=== PATIENT | male | born 1940 | race Caucasian/White ===

== ENCOUNTER → 2016-11-01 | Outpatient (CLI) | payer MEDICARE, OTHER ==
[2016-11-01 13:43] LABS: HEMATOCRIT 43.4 % (37.9-51.0); HEMOGLOBIN 14.6 g/dL (13.5-17.0); HGB HCT DIFFERENCE 0.4; MEAN CORPUSCULAR HEMOGLOBIN 30.5 pg (27.0-33.4); MEAN CORPUSCULAR HGB CONC 33.7 g/dL (32.0-36.0); MEAN CORPUSCULAR VOLUME 91 fl (80-97); RED BLOOD COUNT 4.78 10^6/uL (4.35-5.55); RED CELL DISTRIBUTION WIDTH 13.6 % (11.5-14.0); WHITE BLOOD COUNT 7.1 10^3/uL (4.0-10.5)
[2016-11-01 13:46] LABS: APPEARANCE,URINE CLEAR; BILIRUBIN,URINE NEGATIVE (NEGATIVE); GLUCOSE, URINE NEGATIVE (NEGATIVE); KETONES,URINE NEGATIVE (NEGATIVE); LEUKOCYTE ESTERASE,URINE NEGATIVE (NEGATIVE); NITRITE,URINE NEGATIVE (NEGATIVE); PROTEIN,URINE NEGATIVE (NEGATIVE); UROBILINOGEN,URINE NEGATIVE mg/dL (<2.0)
[2016-11-01 14:02] LABS: ANION GAP 12 (5-19); BLOOD UREA NITROGEN 13 mg/dL (7-20); CALCIUM 9.6 mg/dL (8.4-10.2); CARBON DIOXIDE 26 mmol/L (22-30); CHLORIDE 95 mmol/L (98-107); CREATININE RESULT 0.65 mg/dL (0.52-1.25); GLUCOSE 86 mg/dL (75-110); POTASSIUM 4.7 mmol/L (3.6-5.0); SODIUM 132.6 mmol/L (137-145)
== END ==
LOC: OD 10:21 → EDSTATUS 11-12 14:00
PROVIDERS: ATTEND Orthopaedic Surgery
DX: Z53.9 Procedure and treatment not carried out, unspecified reason (principal)
CPT/HCPCS: 36415; 80048; 81001; 85027

== ENCOUNTER → 2016-11-06 | Outpatient (CLI) | payer MEDICARE, OTHER ==
[2016-11-06 12:21] LABS: ALANINE AMINOTRANSFERASE 30 U/L (21-72); ALBUMIN 3.9 g/dL (3.5-5.0); ALKALINE PHOSPHATASE 127 U/L (38-126); ASPARTATE AMINO TRANSFERASE 45 U/L (17-59); BILIRUBIN,DIRECT 0.3 mg/dL (0.0-0.4); BILIRUBIN,TOTAL 1.1 mg/dL (0.2-1.3); CHOLESTEROL 173.24 mg/dL (0-200); Direct HDL 64 mg/dL (>40); MAGNESIUM 1.9 mg/dL (1.6-2.3); TOTAL PROTEIN 6.8 g/dL (6.3-8.2); TRIGLYCERIDES 50 mg/dL (<150)
[2016-11-06 12:33] LABS: DIRECT LDL 81 mg/dL (<100)
[2016-11-08 16:15] LABS: ABSOLUTE BASOPHILS # (AUTO) 0.1 10^3/uL (0.0-0.2); ABSOLUTE EOSINOPHILS # (AUTO) 0.1 10^3/uL (0.0-0.6); ABSOLUTE LYMPHOCYTES (AUTO) 1.4 10^3/uL (0.5-4.7); ABSOLUTE MONOCYTES (AUTO) 0.5 10^3/uL (0.1-1.4); ABSOLUTE NEUT (AUTO) 4.6 10^3/uL (1.7-8.2); BASOPHILS % (AUTO) 0.8 % (0-2); EOSINOPHILS % (AUTO) 1.1 % (0-6); HEMATOCRIT 42.3 % (37.9-51.0); HEMOGLOBIN 14.5 g/dL (13.5-17.0); HGB HCT DIFFERENCE 1.2; LYMPHOCYTES % (AUTO) 21.7 % (13-45); MEAN CORPUSCULAR HEMOGLOBIN 30.5 pg (27.0-33.4); MEAN CORPUSCULAR HGB CONC 34.2 g/dL (32.0-36.0); MEAN CORPUSCULAR VOLUME 89 fl (80-97); MONOCYTES % (AUTO) 7.2 % (3-13); RED BLOOD COUNT 4.75 10^6/uL (4.35-5.55); RED CELL DISTRIBUTION WIDTH 13.6 % (11.5-14.0); SEGMENTED NEUTROPHILS % (AUTO) 69.2 % (42-78); WHITE BLOOD COUNT 6.7 10^3/uL (4.0-10.5)
[2016-11-08 16:21] LABS: PROTHROMBIN TIME 13.6 SEC (11.4-15.4)
[2016-11-08 16:22] LABS: PARTIAL THROMBOPLASTIN TIME 31.3 SEC (23.5-35.8)
== END ==
LOC: OD 10:50
PROVIDERS: ATTEND Internal Medicine Cardiovascular Disease
DX: Z01.810 Encounter for preprocedural cardiovascular examination (principal); I49.3 Ventricular premature depolarization; R07.89 Other chest pain; E78.00 Pure hypercholesterolemia, unspecified; R73.09 Other abnormal glucose; Z79.01 Long term (current) use of anticoagulants
CPT/HCPCS: 36415; 80061; 80076; 82977; 83036; 83735; 84443; 85025; 85610; 85730

== ENCOUNTER → 2017-01-08 | Outpatient (CLI) | payer MEDICARE, OTHER ==
[2017-01-08 16:08] LABS: ABSOLUTE BASOPHILS # (AUTO) 0.1 10^3/uL (0.0-0.2); ABSOLUTE EOSINOPHILS # (AUTO) 0.1 10^3/uL (0.0-0.6); ABSOLUTE LYMPHOCYTES (AUTO) 1.6 10^3/uL (0.5-4.7); ABSOLUTE MONOCYTES (AUTO) 0.5 10^3/uL (0.1-1.4); ABSOLUTE NEUT (AUTO) 4.5 10^3/uL (1.7-8.2); BASOPHILS % (AUTO) 0.8 % (0-2); EOSINOPHILS % (AUTO) 1.1 % (0-6); HEMATOCRIT 39.9 % (37.9-51.0); HEMOGLOBIN 13.5 g/dL (13.5-17.0); HGB HCT DIFFERENCE 0.6; LYMPHOCYTES % (AUTO) 24.5 % (13-45); MEAN CORPUSCULAR HEMOGLOBIN 30.3 pg (27.0-33.4); MEAN CORPUSCULAR HGB CONC 33.9 g/dL (32.0-36.0); MEAN CORPUSCULAR VOLUME 89 fl (80-97); MONOCYTES % (AUTO) 6.9 % (3-13); RED BLOOD COUNT 4.46 10^6/uL (4.35-5.55); RED CELL DISTRIBUTION WIDTH 13.7 % (11.5-14.0); SEGMENTED NEUTROPHILS % (AUTO) 66.7 % (42-78); WHITE BLOOD COUNT 6.7 10^3/uL (4.0-10.5)
--- NOTE | 2017-01-08 16:11 | RADIOLOGY REPORT (SQ) ---
EXAM DESCRIPTION: CHEST PA/LATERAL COMPLETED DATE/TIME: 01/08/2017 3:46 pm REASON FOR STUDY: PRE OP COMPARISON: 03/19/2016 EXAM PARAMETERS: NUMBER OF VIEWS: two views TECHNIQUE: Digital Frontal and Lateral radiographic views of the chest acquired. RADIATION DOSE: NA LIMITATIONS: none FINDINGS: LUNGS AND PLEURA: No opacities, masses or pneumothorax. No pleural effusion. MEDIASTINUM AND HILAR STRUCTURES: No masses or contour abnormalities. HEART AND VASCULAR STRUCTURES: Heart normal size. No evidence for failure. BONES: No acute findings. HARDWARE: None in the chest. OTHER: No other significant finding. IMPRESSION: NO SIGNIFICANT RADIOGRAPHIC FINDING IN THE CHEST. TECHNICAL DOCUMENTATION: JOB ID: [id number] [employer] [place]- All Rights Reserved
[2017-01-08 16:13] LABS: APPEARANCE,URINE CLEAR; BILIRUBIN,URINE NEGATIVE (NEGATIVE); GLUCOSE, URINE NEGATIVE (NEGATIVE); KETONES,URINE NEGATIVE (NEGATIVE); LEUKOCYTE ESTERASE,URINE NEGATIVE (NEGATIVE); NITRITE,URINE NEGATIVE (NEGATIVE); PROTEIN,URINE NEGATIVE (NEGATIVE); UROBILINOGEN,URINE NEGATIVE mg/dL (<2.0)
[2017-01-08 16:29] LABS: ANION GAP 10 (5-19); BLOOD UREA NITROGEN 14 mg/dL (7-20); CALCIUM 9.2 mg/dL (8.4-10.2); CARBON DIOXIDE 25 mmol/L (22-30); CHLORIDE 97 mmol/L (98-107); GLUCOSE 116 mg/dL (75-110); POTASSIUM 4.6 mmol/L (3.6-5.0); SODIUM 131.9 mmol/L (137-145)
--- NOTE | 2017-01-08 19:55 | EKG REPORT ---
SEVERITY:- ABNORMAL ECG - SINUS RHYTHM MULTIPLE VENTRICULAR PREMATURE COMPLEXES BORDERLINE LEFT AXIS DEVIATION BORDERLINE T ABNORMALITIES, DIFFUSE LEADS : Confirmed by: Ericka Yanez 08-Jan-2017 19:53:31
== END ==
LOC: OD 14:45
PROVIDERS: ATTEND Orthopaedic Surgery
DX: Z01.810 Encounter for preprocedural cardiovascular examination (principal); Z01.812 Encounter for preprocedural laboratory examination; Z01.818 Encounter for other preprocedural examination
CPT/HCPCS: 36415; 71020; 80048; 81001; 85025; 93005; 93010

== ENCOUNTER 2017-01-21 06:27 | Inpatient (IN) | payer MEDICARE, OTHER ==
[~2017-01-21 06:27] MED LIST: BUPIVACAINE INJ/PF LIPOSOME/PF 266 MG/20 ML SDV IJ PRN; CEFAZOLIN INJ 1 GM VIAL IV PRN; IBUPROFEN 800 MG/NS 250 ML IV PRN; LACTATED RINGERS 1000 ML IV PRN; LANSOPRAZOLE 15 MG TAB.RAP.DR PO PRN; LIDOCAINE 0.5% INJ-PF (5 MG/ML) 50 ML SDV SUBCUT PRN; OXYCODONE HCL SR 10 MG TABLET PO PRN; SCOPOLAMINE HYDROBROMIDE 1.5 MG PATCH.TD72 TOP PRN; VANCOMYCIN HCL 1,000 MG in DEXTROSE 5%-WATER 250 ML IV PRN
[2017-01-21] MEDS ORDERED: THROMBIN (BOVINE) 5000 UNIT EPITAXIS KIT ONE (08:23)
[2017-01-21] MEDS ORDERED: THROMBIN (BOVINE) TOPICAL 20000 UNIT VIAL ONE (08:23)
[2017-01-21] MEDS ORDERED: BUPIVACAINE INJ/PF LIPOSOME/PF 266 MG/20 ML SDV ONE (08:24)
[2017-01-21] MEDS ORDERED: MIDAZOLAM 2 MG/2 ML INJ ONE (10:41)
[2017-01-21] MEDS ORDERED: PROPOFOL INJ 200 MG/20 ML VIAL IV ONE (10:41)
[2017-01-21] MEDS ORDERED: FENTANYL CITRATE INJ/PF 100 MCG/2 ML AMPUL ONE (10:41)
[2017-01-21] MEDS ORDERED: EPHEDRINE SULFATE INJ 50 MG/1 ML AMPULE ONE (10:42)
[2017-01-21] MEDS ORDERED: TRANEXAMIC ACID INJ/PF 1,000 MG/10 ML SDV IV ONE ×3 (10:42→15:55)
[2017-01-21] MEDS ORDERED: DIPHENHYDRAMINE HCL 50 MG/ML VIAL IV PRN ×2 (12:04→12:49)
[2017-01-21] MEDS ORDERED: FENTANYL CITRATE INJ/PF 100 MCG/2 ML AMPUL IV PRN ×3 (12:04)
[2017-01-21] MEDS ORDERED: MEPERIDINE HCL/PF INJ 25 MG/1 ML DISP.SYRIN IV PRN (12:04)
[2017-01-21] MEDS ORDERED: OXYCODONE-ACETAMINOPHEN 5-325 MG TABLET PO PRN ×2 (12:04)
[2017-01-21] MEDS ORDERED: MORPHINE SULFATE 10 MG/ML INJ IV PRN ×4 (12:04→12:49)
[2017-01-21] MEDS ORDERED: PROMETHAZINE HCL INJ 25 MG/1 ML VIAL IV PRN ×2 (12:04)
--- NOTE | 2017-01-21 12:48 | Operative Report ---
Operative Report DATE OF SURGERY: 01/21/17 PREOPERATIVE DIAGNOSIS: l hip oa OPERATION: L hip arthroplasty SURGEON: EHSAN GARRETT ANESTHESIA: Spinal TISSUE REMOVED OR ALTERED: bone to path ESTIMATED BLOOD LOSS: 100 PROCEDURE: Implants used: Femur: Jane Accolade 2 size 5 stem Acetabular shell: 64 mm acetabular shell Liner: A 36 mm flat cross-linked polyethylene liner Head: 36 Millimeter chrome cobalt head -5 neck The patient is placed in a left lateral decubitus position on the operating table. The right lower extremity and hindquarter is prepped and draped in a sterile fashion. A curvilinear incision was made over the greater trochanter a posterior approach the hip was taken. The femoral head is dislocated and the femoral neck transected using an oscillating saw. Attention was next turned to the acetabulum. Soft tissues cleared off the acetabulum using electrocautery. The acetabulum was then prepared using a series of hemispherical reamers until a 63 millimeters reamer is seated. Subsequently a 64 millimeters Jane titanium hemispherical shell is impacted into position and secured with one screw. A standard flat 36 millimeters cross- link liner is impacted into the shell. Attention was next turned to the femur. Access is gained to the femoral canal using a box osteotome to the piriformis fossa. The femur is then prepared using a series of broaches until a number 5 broach is seated. A trial reduction was now performed using a 36 millimeters head with -5 neck. Preoperative leg length was recreated and is excellent anterior posterior stability. A decision was made to proceed with the above construct. All trial implants were removed. The wound is irrigated with pulsed lavage. A number 5 stem is impacted into the femoral canal. A trial reduction was again performed with a 36 mm head and a -5 neck. Findings as previously. The hip was dislocated one last time and the final chrome-cobalt head is impacted onto the trunnion. The hip was reduced. Wound is copiously irrigated with pulsed lavage. Sent closed in layers using interrupted Vicryl followed by sebastian. A sterile dressing is applied and the patient's returned to recovery room in satisfactory patient.
[2017-01-21] MEDS ORDERED: ZOLPIDEM TARTRATE 5 MG TABLET PO PRN (12:49)
[2017-01-21] MEDS ORDERED: ONDANSETRON 4 MG TAB.RAPDIS PO PRN (12:49)
[2017-01-21] MEDS ORDERED: MAG HYDROX/AL HYDROX/SIMETH SUSP 30 ML UDCUP PO PRN (12:49)
[2017-01-21] MEDS ORDERED: MORPHINE SULFATE 10 MG/ML INJ IM PRN (12:49)
[2017-01-21] MEDS ORDERED: OXYCODONE HCL IR 5 MG TABLET PO PRN (12:49)
[2017-01-21] MEDS ORDERED: ONDANSETRON HCL INJ/PF 4 MG/2 ML SDV IV PRN (12:49)
[2017-01-21] MEDS ORDERED: RINGERS SOLUTION,LACTATED 1,000 ML IV PRN (12:49)
--- NOTE | 2017-01-21 14:08 | RADIOLOGY REPORT (SQ) ---
EXAM DESCRIPTION: PELVIS AP COMPLETED DATE/TIME: 01/21/2017 1:16 pm REASON FOR STUDY: Post Op Long Cassette in PACU M16.12 UNILATERAL PRIMARY OSTEOARTHRITIS, LEFT HIP COMPARISON: 09/06/2016. NUMBER OF VIEWS: One view TECHNIQUE: Digital radiographic images of the pelvis post-procedure LIMITATIONS: None. FINDINGS: BONES: No worrisome or unexpected findings post-procedure. DEVICE: Total hip replacement. Components of the device in appropriate location. SOFT TISSUES: No worrisome findings. Expected postoperative soft tissue changes. IMPRESSION: SATISFACTORY POSTOPERATIVE PELVIS. TECHNICAL DOCUMENTATION: JOB ID: [id number] 1930 [employer]- All Rights Reserved
[2017-01-21] MEDS ORDERED: GLYCOPYRROLATE INJ 0.4 MG/2 ML VIAL ONE (14:27)
[2017-01-21] MEDS ORDERED: (PENDING PHARMACY ID) (Carvedilol [Carvedilol] 25 MG) PO SCH (18:00)
[2017-01-21] MEDS: IBUPROFEN 800 MG in NORMAL SALINE 250 ML IV SCH (18:04)
[2017-01-21] MEDS: SENNOSIDES/DOCUSATE 8.6-50 MG 1 EACH TABLET PO SCH (18:05)
[2017-01-21] MEDS: RIVAROXABAN 10 MG TABLET PO SCH (21:58)
[2017-01-21] MEDS: CARVEDILOL 12.5 MG TABLET PO SCH (21:59)
[2017-01-21] MEDS: OXYCODONE HCL SR 10 MG TABLET PO SCH (21:59)
[2017-01-22] MEDS ORDERED: VANCOMYCIN HCL 1,000 MG in DEXTROSE 5%-WATER 250 ML IV ONE (01:00)
[2017-01-22] MEDS: IBUPROFEN 800 MG in NORMAL SALINE 250 ML IV SCH ×3 (01:31→17:14)
[2017-01-22 05:35] LABS: HEMATOCRIT 32.5 % (37.9-51.0); HEMOGLOBIN 11.5 g/dL (13.5-17.0); MEAN CORPUSCULAR HEMOGLOBIN 31.6 pg (27.0-33.4); MEAN CORPUSCULAR HGB CONC 35.3 g/dL (32.0-36.0); MEAN CORPUSCULAR VOLUME 90 fl (80-97); RED BLOOD COUNT 3.63 10^6/uL (4.35-5.55); RED CELL DISTRIBUTION WIDTH 14.2 % (11.5-14.0); WHITE BLOOD COUNT 7.4 10^3/uL (4.0-10.5)
[2017-01-22] MEDS: LANSOPRAZOLE 30 MG TAB.RAP.DR PO SCH (05:42)
[2017-01-22 05:54] LABS: BLOOD UREA NITROGEN 17 mg/dL (7-20); CALCIUM 8.4 mg/dL (8.4-10.2); CREATININE RESULT 0.64 mg/dL (0.52-1.25); GLUCOSE 116 mg/dL (75-110); POTASSIUM 4.8 mmol/L (3.6-5.0); SODIUM 131.4 mmol/L (137-145)
[2017-01-22 06:05] LABS: CARBON DIOXIDE 27 mmol/L (22-30); CHLORIDE 100 mmol/L (98-107)
[2017-01-22 06:06] LABS: ANION GAP 4 (5-19)
--- NOTE | 2017-01-22 06:46 | PDOC PROGRESS REPORT ---
Subjective Progress Note for:: 01/22/17 Subjective:: Patient with only minor complaints of discomfort today Physical Exam Vital Signs: Temp Pulse Resp BP Pulse Ox 36.8 C 58 L 16 132/62 H 95 01/22/17 02:00 01/22/17 02:00 01/22/17 02:00 01/22/17 02:00 01/22/17 03:34 Pulse Oximeter Continuous Start: 01/21/17 18: 12 Freq: RTQ4 Status: Active Document 01/22/17 03:34 STI (Rec: 01/22/17 03:35 STI [id number]) Pulse Oximetry Assessment Oxygen Saturation (92-100) 95 Oxygen Delivery Method Room Air Fraction of Inspired Oxygen (FIO2) 21 Equipment Usage Equipment in Use Continuous SpO2 Machine # N-[id number] Intake & Output 01/20/17 01/21/17 01/22/17 06:59 06:59 06:59 Intake Total 4342 Output Total 1400 Balance 2942 General appearance: PRESENT: no acute distress Head exam: PRESENT: normocephalic Respiratory exam: PRESENT: unlabored Cardiovascular exam: PRESENT: RRR Pulses: PRESENT: +1 pedal pulses bilateral Vascular exam: PRESENT: normal capillary refill GI/Abdominal exam: PRESENT: soft Rectal exam: PRESENT: deferred Extremities exam: PRESENT: other - Hip dressing clean dry and intact. Leg lengths are equal. Distal neurovascular examination is intact. Neurological exam: PRESENT: alert, awake, oriented to person, oriented to place , oriented to time, oriented to situation. ABSENT: motor sensory deficit Psychiatric exam: PRESENT: appropriate affect, normal mood. ABSENT: homicidal ideation, suicidal ideation Skin exam: PRESENT: dry, intact, warm. ABSENT: cyanosis, rash Results Laboratory Results: 01/22/17 04:51 01/22/17 04:51 01/21/17 01/21/17 01/21/17 07:44 07:44 07:44 WBC RBC Hgb Hct MCV MCH MCHC RDW Plt Count Sodium Potassium 4.3 Chloride Carbon Dioxide Anion Gap BUN Creatinine Est GFR ( Amer) Est GFR (Non-Af Amer) Glucose Calcium Magnesium 1.9 Blood Type O POSITIVE Antibody Screen NEGATIVE 01/22/17 01/22/17 04:51 04:51 WBC 7.4 RBC 3.63 L Hgb 11.5 L Hct 32.5 L MCV 90 MCH 31.6 MCHC 35.3 RDW 14.2 H Plt Count 145 L Sodium 131.4 L Potassium 4.8 Chloride 100 Carbon Dioxide 27 Anion Gap 4 L BUN 17 Creatinine 0.64 Est GFR ( Amer) > 60 Est GFR (Non-Af Amer) > 60 Glucose 116 H Calcium 8.4 Magnesium Blood Type Antibody Screen Impressions: Pelvis X-Ray 01/21/17 12:50 IMPRESSION: SATISFACTORY POSTOPERATIVE PELVIS. Status: Imported from PACS Assessment & Plan - Diagnosis (1) Arthritis of left hip Is this a current diagnosis for this admission?: YesPlan: 76-year-old white male postop day 1 from left hip arthroplasty. No physical therapy yesterday. For discharge to a care home facility on . - Time Time Spent with patient: 15-24 minutes Anticipated discharge: SNF Within: within 48 hours
[2017-01-22] MEDS: SENNOSIDES/DOCUSATE 8.6-50 MG 1 EACH TABLET PO SCH ×2 (09:35→17:14)
[2017-01-22] MEDS: TAMSULOSIN HCL 0.4 MG CAP.SR.24H PO SCH (09:35)
[2017-01-22] MEDS: CARVEDILOL 12.5 MG TABLET PO SCH ×2 (09:35→21:47)
[2017-01-22] MEDS: VALSARTAN 160 MG TABLET PO SCH (09:35)
[2017-01-22] MEDS: CHOLECALCIFEROL (D3) 1,000 UNIT TABLET PO SCH (09:35)
[2017-01-22] MEDS ORDERED: (PENDING PHARMACY ID) (Multivitamin [Multivitamins] 1 TAB) PO SCH (10:00)
[2017-01-22] MEDS ORDERED: (PENDING PHARMACY ID) (Valsartan/Hydrochlorothiazide [Valsartan-Hctz 160-25 Mg Tab] 1 TAB) PO SCH (10:00)
[2017-01-22] MEDS ORDERED: (PENDING PHARMACY ID) (Cholecalciferol (Vitamin D3) [Vitamin D3 2000 Unit Tablet] 2,000 UN PO SCH (10:00)
[2017-01-22] MEDS ORDERED: LYSINE HCL PO SCH (10:00)
[2017-01-22] MEDS ORDERED: PRENATAL VITAMIN W-O CA NO5/FE FUMARATE/FA CAPSULE PO SCH (10:00)
[2017-01-22] MEDS ORDERED: MULTIVITAMIN TABLET PO SCH (10:00)
[2017-01-22] MEDS ORDERED: HYDROCHLOROTHIAZIDE 25 MG TABLET PO SCH (10:00)
[2017-01-22] MEDS: OXYCODONE HCL SR 10 MG TABLET PO SCH ×2 (12:12→21:45)
[2017-01-22] MEDS: RIVAROXABAN 10 MG TABLET PO SCH (21:45)
[2017-01-23] MEDS: IBUPROFEN 800 MG in NORMAL SALINE 250 ML IV SCH ×2 (01:53→10:41)
[2017-01-23] MEDS ORDERED: OXYCODONE HCL IR 5 MG TABLET PO PRN (03:39)
[2017-01-23] MEDS ORDERED: NALOXONE HCL INJ/PF 0.4 MG/1 ML SDV IV ONE (03:39)
[2017-01-23] MEDS ORDERED: NALOXONE HCL INJ/PF 0.4 MG/1 ML SDV ONE (03:44)
[2017-01-23 04:49] LABS: HEMATOCRIT 30.3 % (37.9-51.0); HEMOGLOBIN 10.6 g/dL (13.5-17.0); HGB HCT DIFFERENCE 1.5; MEAN CORPUSCULAR HEMOGLOBIN 31.8 pg (27.0-33.4); MEAN CORPUSCULAR HGB CONC 35.1 g/dL (32.0-36.0); MEAN CORPUSCULAR VOLUME 91 fl (80-97); RED BLOOD COUNT 3.35 10^6/uL (4.35-5.55); WHITE BLOOD COUNT 8.4 10^3/uL (4.0-10.5)
[2017-01-23 05:18] LABS: CREATINE KINASE MB 6.66 ng/mL (<4.55); TROPONIN I 0.012 ng/mL
[2017-01-23] MEDS: LANSOPRAZOLE 30 MG TAB.RAP.DR PO SCH (05:55)
--- NOTE | 2017-01-23 07:30 | PDOC TRANSFER SUMMARY ---
General - Admit/Disc Date/PCP Admission Date/Primary Care Provider: 01/21/17 06:27 GREGORIO FULLER PA-C Discharge Date: 01/24/17 - Discharge Diagnosis (1) Arthritis of left hip Is this a current diagnosis for this admission?: Yes - Additional Information Resuscitation Status: Full Code Home Medications: Aspirin [Aspirin 81 mg Chewable Tablet] 1 tab PO DAILY 07/18/15 Lysine HCl [l-Lysine] 1 tab PO DAILY 07/18/15 Multivitamin [Multivitamins] 1 tab PO DAILY 07/18/15 Valsartan/Hydrochlorothiazide [Valsartan-Hctz 160-25 mg Tab] 1 tab PO DAILY Cholecalciferol (Vitamin D3) [Vitamin D3 2000 unit Tablet] 2,000 unit PO DAILY 10/31/16 Tamsulosin HCl 0.8 mg PO ASDIR 10/31/16 Carvedilol 25 mg PO BID 01/21/17 Meloxicam 7.5 mg PO BID 01/21/17 History of Present Illness Admission Date/PCP: 01/21/17 06:27 GREGORIO FULLER PA-C History of Present Illness: DEBBIE ROJAS is a 76 year old male's of left hip pain and functional disability secondary osteoarthritis. Patient is admitted for elective left hip arthroplasty. Hospital Course Hospital Course: Admitted through the operating room where he undergoes uncomplicated left hip arthroplasty. Is returned to the floor in satisfactory condition. There is some issues with bradycardia but normal attention and normal urine output. This is attributed to medications which are adjusted. The patient seen by physical therapy for weightbearing as tolerated toward program. This is relatively slow and on the first postoperative day he walks only 4 steps. Hematocrit remains above 30%. Physical Exam Vital Signs: Temp Pulse Resp BP Pulse Ox 36.9 C 41 L 19 105/49 L 96 01/23/17 00:05 01/23/17 04:45 01/23/17 00:05 01/23/17 04:45 01/23/17 04:00 Pulse Oximeter Continuous Start: 01/21/17 18: 12 Freq: RTQ4 Status: Active Document 01/23/17 04:00 SFL (Rec: 01/23/17 06:07 SFL [email or web address]) Pulse Oximetry Assessment Oxygen Saturation (92-100) 96 Equipment Usage Equipment in Use Continuous SpO2 Machine # 6 Intake & Output 01/22/17 01/23/17 01/24/17 06:59 06:59 06:59 Intake Total 4582 810 Output Total 1600 375 Balance 2982 435 Weight 104.6 kg 108.5 kg Results Laboratory Results: 01/23/17 04:16 01/22/17 04:51 01/23/17 04:16 WBC 8.4 RBC 3.35 L Hgb 10.6 L Hct 30.3 L MCV 91 MCH 31.8 MCHC 35.1 RDW 14.0 Plt Count 122 L 01/23/17 01/23/17 04:16 04:16 Creatine Kinase 1291 H CK-MB (CK-2) 6.66 H Troponin I 0.012 Impressions: Pelvis X-Ray 01/21/17 12:50 IMPRESSION: SATISFACTORY POSTOPERATIVE PELVIS. Status: Imported from PACS Transfer Plan - Disposition Transfer Plan: Transferred to [facility] when bed available. He can receive both physical therapy for weightbearing as tolerated ambulation as well as retirement. Follow-up will be with Dr. Regan and [facility] for surgery in 2 weeks for staple removal. Left hip picot dressing will be changed on postop day 7 and replaced with an OpSite.
[2017-01-23] MEDS: ACETAMINOPHEN 325 MG TABLET PO PRN ×2 (08:07→17:54)
[2017-01-23] MEDS ORDERED: NORMAL SALINE 1000 ML 1,000 ML IV PRN (08:32)
[2017-01-23] MEDS ORDERED: BISACODYL 10 MG SUPP.RECT PR ONE (09:00)
[2017-01-23] MEDS ORDERED: ASPIRIN 81 MG TABLET, CHEWABLE PO SCH (10:00)
--- NOTE | 2017-01-23 10:12 | CONSULTATION REPORT E ---
Consultation Report NAME: DEBBIE ROJAS : 1940 AGE: 76Y DATE: 01/23/2017 427 A TO: PREET NICHOLSON NP FROM: Requesting Physician CODE STATUS: FULL CODE. PRIMARY CARE PROVIDER: Dr. Preet Deleon ATTENDING: Dr. Regan CONSULTING PROVIDER: Dr. Regan REASON FOR CONSULTATION: Bradycardia and altered mental status. HISTORY OF PRESENT ILLNESS: The patient is a 76-year-old male with a past medical history of osteoarthritis and hypertension. The patient presented for elective left hip arthroplasty. The patient had a functional disability secondary to the osteoarthritis. The patient was admitted through the operating room where he underwent an uncomplicated left hip arthroplasty and the patient was sent to the floor in satisfactory condition. Overnight the patient did develop some bradycardia but was normotensive and some confusion. The patient had normal urine output. The patient, who had been receiving opiates postop, was given Narcan with complete resolution of his symptoms. The patient was seen by physical therapy for weightbearing and tolerated it without issue. The patient is slated to go to [facility] for physical therapy. Upon evaluation of the patient, he was found to be awake, alert, and was completing a crossword puzzle; however, when asking the patient the specifics about his healthcare he is quite rambling. The patient is also preoccupied with why his sheets had to be changed during his stay as this is quite expensive. The patient stated that the sheets did not have to be replaced on his bed which they have been a couple of times. Also the patient stated that he had been rolled by the staff for positioning and stated that he should not be positioned by anyone. The patient was very difficult to focus and had no recollection of the events that occurred overnight. While visiting with the patient, he was normotensive and was oxygenating 98% on room air and had a heart rate of 72. PAST MEDICAL HISTORY: 1. Hypertension. 2. Osteoarthritis. PAST SURGICAL HISTORY: 1. Orthopedic knee surgery of the left knee including replacement. 2. Status post hip repair. ALLERGIES: No known drug allergies. CURRENT MEDICATIONS: 1. Flomax 0.8 mg p.o. daily. 2. Xarelto 10 mg p.o. at hour of sleep. 3. Coreg 25 mg p.o. q.12 hours. 4. Valsartan 160 mg p.o. daily. 5. Tylenol 650 mg p.o. q.4 hours p.r.n. 6. Aspirin 81 mg p.o. daily. 7. Ibuprofen 800 mg IV q.8 hours. 8. Prevacid 30 mg p.o. every a.m. 9. Zofran 4 mg IV q.6 hours p.r.n. 10. Vitamin D3 at 2000 international units p.o. daily. SOCIAL HISTORY: The patient currently resides with his daughter who is also his surrogate decision maker, Ramila Curiel, who may be reached at [phone]. The patient has no history of tobacco use. No use of alcohol or illicit drug use. The patient is retired. FAMILY MEDICAL HISTORY: Is not remarkable for heart disease but is positive for osteoarthritis. The patient has a daughter who is healthy. Both parents are . REVIEW OF SYSTEMS: The patient denies any specific concerns; however, full of review of systems is difficult to appreciate given the patient's mental status. PHYSICAL EXAMINATION: GENERAL: On examination, the patient is a well-developed, well-nourished, 76-year-old male who is awake and alert. He is oriented to person, place, time, not fully oriented to situation. He is a little delayed with unusual priorities. VITAL SIGNS: Temperature 98.5, pulse 75, respirations 19, blood pressure 131/68, oxygen saturation is 99% on room air. SKIN: Warm and dry. No rash. He is not diaphoretic. HEENT: Pupils equal, round, reactive to light and accommodation. Conjunctivae are pink. Sclerae are not icterus. No JVP. No palpable lymphadenopathy or thyromegaly. CARDIOVASCULAR: Heart is regular. There is no murmur or rub. CHEST: Clear, symmetrical, unlabored. ABDOMEN: Soft, nontender, nondistended. BACK: No CVA tenderness or sacral edema. EXTREMITIES: No clubbing, cyanosis, or edema. PSYCHIATRIC: Odd affect. Uncertain of his exact baseline and can be a little short. DIAGNOSTICS: Lab values are as values: Hematology obtained on 01/23/2017: WBCs are 8.4, hemoglobin is 10.6, hematocrit is 30.3, platelet count is 122,000. Chemistry obtained on 01/23/2017: Sodium is 131, potassium 4.8, chloride is 100, carbon dioxide 27, BUN 17, creatinine is 0.61, glucose 116, A1c is 5.4, calcium is 8.4, CK is 1291, CK-MB is 6.66, troponin is 0.012. IMPRESSION AND PLAN: 1. Bradycardia. This may be due to the patient's postoperative medications and this has improved with Narcan. The patient's heart rate is in an appropriate range, therefore, will continue his home beta edith for fear of rebounding and monitor. 2. Acute encephalopathy. As per #1 as well as combination of postop delirium. 3. Hyponatremia. This is relatively mild, however, will discontinue hydrochlorothiazide. 4. Mild rhabdo of 1291. Will gently hydrate the patient and follow CK accordingly. The patient's creatinine is at normal range. 5. Hyperglycemia. This must be a stress response as the patient's A1c is normal. 6. Postoperative anemia. The patient's hemoglobin went down from 13.5 to 10.6. This does need to be monitored. 7. Thrombocytopenia, relatively mild but again this needs to be monitored. 8. Suspected coronary artery disease. Unable to get any significant information out of the patient nor medical records available but given the patient's home medication list that contains an ARB as well as aspirin and carvedilol, feel this is most likely certain. The patient's troponin was unremarkable. The patient denied any symptoms of chest pain and his EKG was unimpressive. 9. DVT prophylaxis. The patient does take Xarelto as per Orthopedics. DISPOSITION: The patient is a FULL CODE. Pending patient's symptomatology and diagnostic findings, will reevaluate as needed. Do feel the patient would benefit from IV fluids to ensure that CK does not progress and will continue to monitor the patient's heart rate. Time spent on this consultation including assessment, plan, physical examination, patient education, and resource alignment is 30 minutes. DICTATING PHYSICIAN: PREET NICHOLSON NP [id number] PHY#: [id number] ID: [id number] JOB#: [id number] ACCT: [id number] cc:PREET NICHOLSON NP >
[2017-01-23] MEDS: CARVEDILOL 12.5 MG TABLET PO SCH ×2 (10:22→21:15)
[2017-01-23] MEDS: CHOLECALCIFEROL (D3) 1,000 UNIT TABLET PO SCH (10:23)
[2017-01-23] MEDS: TAMSULOSIN HCL 0.4 MG CAP.SR.24H PO SCH (10:23)
[2017-01-23] MEDS: VALSARTAN 160 MG TABLET PO SCH (10:24)
[2017-01-23] MEDS: SENNOSIDES/DOCUSATE 8.6-50 MG 1 EACH TABLET PO SCH ×2 (10:24→17:52)
[2017-01-23] MEDS: ASPIRIN 81 MG TABLET, CHEWABLE PO SCH (10:24)
[2017-01-23 11:40] LABS: CREATINE KINASE MB 5.92 ng/mL (<4.55)
[2017-01-23 11:42] LABS: TROPONIN I < 0.012 ng/mL
[2017-01-23] MEDS: RIVAROXABAN 10 MG TABLET PO SCH (21:29)
[2017-01-24] MEDS: LANSOPRAZOLE 30 MG TAB.RAP.DR PO SCH (05:05)
[2017-01-24 06:10] LABS: HEMOGLOBIN 9.8 g/dL (13.5-17.0); HGB HCT DIFFERENCE 1.4; MEAN CORPUSCULAR HEMOGLOBIN 31.5 pg (27.0-33.4); MEAN CORPUSCULAR HGB CONC 35.2 g/dL (32.0-36.0); MEAN CORPUSCULAR VOLUME 90 fl (80-97); RED BLOOD COUNT 3.12 10^6/uL (4.35-5.55); RED CELL DISTRIBUTION WIDTH 13.7 % (11.5-14.0)
[2017-01-24] MEDS ORDERED: CARVEDILOL 12.5 MG TABLET PO SCH (09:13)
[2017-01-24] MEDS: ACETAMINOPHEN 325 MG TABLET PO PRN (09:51)
[2017-01-24] MEDS: CHOLECALCIFEROL (D3) 1,000 UNIT TABLET PO SCH (09:52)
[2017-01-24] MEDS: TAMSULOSIN HCL 0.4 MG CAP.SR.24H PO SCH (09:52)
[2017-01-24] MEDS: ASPIRIN 81 MG TABLET, CHEWABLE PO SCH (09:52)
[2017-01-24] MEDS: SENNOSIDES/DOCUSATE 8.6-50 MG 1 EACH TABLET PO SCH (09:54)
[2017-01-24] MEDS: VALSARTAN 160 MG TABLET PO SCH (10:13)
[2017-01-24 15:50] VITALS: BP 132/58
--- NOTE | 2017-01-24 17:57 | PROGRESS NOTE E ---
Progress Note NAME: DEBBIE ROJAS : 1940 AGE: 76Y DATE: 01/24/2017 ROOM: 427 SUBJECTIVE: The patient is lying in bed. He states he feels okay today. The patient is very anxious to begin his rehab. He denies any nausea, vomiting, diarrhea. No shortness of breath, dizziness, chest pain. No fevers, chills. The patient has been afebrile. His blood pressure has been in a good range, and the patient does not voice any other concerns at this time. REVIEW OF SYSTEMS: The rest of the review of systems is negative. MEDICATIONS: Medications have been reviewed. OBJECTIVE: GENERAL: The patient is a well-developed, well-nourished, 76-year-old male who is awake, alert and oriented to person, place, time, and situation. He does not appear to be in any acute distress. VITAL SIGNS: Temperature is 98.4, pulse 69, respirations 15, blood pressure is 132/58, oxygen saturation is 100% on room air. SKIN: Warm and dry. No rash. He is not diaphoretic. HEENT: Pupils equal, round, reactive to light and accommodation. Conjunctiva is pink. NECK: No JVD. CARDIOVASCULAR SYSTEM: Heart is regular. There is no murmur or rub. CHEST: Clear, symmetrical, unlabored. ABDOMEN: Soft, nontender, nondistended. BACK: No CVA tenderness, sacral edema. EXTREMITIES: No clubbing, cyanosis, edema. PSYCHIATRIC: Appropriate affect. Pleasant mood. DIAGNOSTICS: Lab values are as follows: Hematology obtained on 01/24/2017; WBCs are 10.0, hemoglobin is 9.8, hematocrit is 28.0, platelet count is 114,000. Chemistry obtained on 01/23/2017: CK is 992, troponin is 0.012. IMPRESSION AND PLAN: 1. BRADYCARDIA. It was felt it was most likely related to postoperative medications. The patient overall has improved with Narcan. Have reduced the patient's dose of beta edith to 12.5 mg b.i.d., and the patient has tolerated this. 2. ACUTE ENCEPHALOPATHY. As per number 1 in combination of postop delirium. 3. HYPONATREMIA. It was relatively mild, but I went ahead and discontinued hydrochlorothiazide. 4. MILD RHABDOMYOLYSIS. This has trended down nicely. The patient's creatinine remained in a normal range. 5. HYPERGLYCEMIA. A stress response as the patient's A1c is normal. 6. POSTOPERATIVE ANEMIA. The patient has no evidence of overt bleed. 7. THROMBOCYTOPENIA. Relatively mild. 8. DVT PROPHYLAXIS. Will continue the patient on Xarelto as per Orthopedics. DISPOSITION: The patient is a FULL CODE. Pending patient's symptomatology and diagnostic findings, will re-evaluate as needed. Time spent on this followup on this assessment, plan, physical examination, and patient education is 15 minutes. DICTATING PHYSICIAN: SOO NICHOLSON NP [id number] PHY#: [id number] ID: [id number] JOB#: [id number] ACCT: [id number] cc:SOO NICHOLSON NP >
== END 2017-01-24 16:54 | DRG 469 ==
LOC: INOR 06:27 → 4S 17:50
PROVIDERS: ADMIT Orthopaedic Surgery; ATTEND Orthopaedic Surgery
PROC: 0SRB02Z Replacement of Left Hip Joint with Metal on Polyethylene Synthetic Substitute, Open Approach (ICD-10-PCS; principal; 2017-01-21 11:15)
DX: M16.12 Unilateral primary osteoarthritis, left hip (principal); G92 Toxic encephalopathy; E87.1 Hypo-osmolality and hyponatremia; T50.905A Adverse effect of unspecified drugs, medicaments and biological substances, initial encounter; R00.1 Bradycardia, unspecified; I10 Essential (primary) hypertension; D69.6 Thrombocytopenia, unspecified; D64.9 Anemia, unspecified; N40.0 Benign prostatic hyperplasia without lower urinary tract symptoms; I25.10 Atherosclerotic heart disease of native coronary artery without angina pectoris; Z86.010 Personal history of colon polyps; Z79.899 Other long term (current) drug therapy; Z79.82 Long term (current) use of aspirin; Z82.61 Family history of arthritis
CPT/HCPCS: 01214; 36415; 72170; 80048; 82550; 82553; 82962; 83036; 83735; 84132; 84484; 85027; 86850; 86900; 86901; 88304; 88311; 94762; 94799; C1713; C9290; G8978-GP; G8979-GP; G8987-GO; G8988-GO; J0690; J1741; J2250; J2310; J2704; J3010; J3370; J3490; J7030; J7050; J7060; J7120

== ENCOUNTER 2017-02-01 18:24 | Emergency (ER) | payer MEDICARE, OTHER ==
--- NOTE | 2017-02-01 18:59 | ER Document Report ---
ED Wound - General Mode of Arrival: Medic Information source: Patient TRAVEL OUTSIDE OF THE [place] IN LAST 30 DAYS: No - HPI Patient complains to provider of: Other - see narrative Occurred: Other - see above Capillary refill: < 3 seconds Sensations intact: Yes Distal pulses present: Yes <ERIC LAND - Last Filed: 02/01/17 19:24> <NISHA SHANKAR - Last Filed: 02/04/17 15:21> - General Chief Complaint: Drainage Stated Complaint: WEAKNESS Time Seen by Provider: 02/01/17 18:48 Notes: Patient is a 76-year-old male who presents to the emergency department today with complaints of a possible wound complication secondary to a left hip arthroplasty. Patient had a left hip replacement on 01/22/2017. Patient states that he lives at [facility], they were changing his dressing 2 days ago, and the "drain came out". Patient describes this "drain" as a "white plastic piece with wire tubing that was attached to the dressing" but he did not bring this with him today. Patient states that [facility] called his surgeon, Dr. Regan, and he agreed to see the patient in clinic on Saturday however the patient states that he thinks something needs to be done sooner because of the bleeding that is occurring around the drain site. (ERIC LAND) - Related Data Allergies/Adverse Reactions: No Known Allergies Allergy (Unverified 07/18/15 02:34) Past Medical History - General Information source: Patient, [facility] Records - Social History Smoking Status: Former Smoker Cigarette use (# per day): No Frequency of alcohol use: None Drug Abuse: None Lives with: Family Family History: Reviewed & Not Pertinent - Past Medical History Cardiac Medical History: Reports: Hx Hypercholesterolemia, Hx Hypertension Renal/ Medical History: Reports: Hx Benign Prostatic Hyperplasia Musculoskeltal Medical History: Reports Hx Arthritis Past Surgical History: Reports: Hx Orthopedic Surgery - L knee - Immunizations Immunizations up to date: Yes Hx Diphtheria, Pertussis, Tetanus Vaccination: Yes Hx Pneumococcal Vaccination: 06/24/14 <ERIC LAND - Last Filed: 02/01/17 19:24> Review of Systems - Review of Systems Constitutional: No symptoms reported EENT: No symptoms reported Cardiovascular: No symptoms reported Respiratory: No symptoms reported Gastrointestinal: No symptoms reported Genitourinary: No symptoms reported Male Genitourinary: No symptoms reported Musculoskeletal: No symptoms reported Skin: See HPI, Other - left hip surgical wound bleeding Hematologic/Lymphatic: No symptoms reported Neurological/Psychological: No symptoms reported -: Yes All other systems reviewed and negative <ERIC LAND - Last Filed: 02/01/17 19:24> Physical Exam <ERIC LAND - Last Filed: 02/01/17 19:24> <NISHA SHANKAR - Last Filed: 02/04/17 15:21> - Vital signs Vitals: Temp Pulse Resp BP Pulse Ox 98.6 F 59 L 18 171/77 H 100 02/01/17 18:25 02/01/17 18:25 02/01/17 18:25 02/01/17 18:25 02/01/17 18:25 - Notes Notes: Physical Exam: General: Alert, appears age appropriate. HEENT: Normocephalic. Atraumatic. PERRL. Extraocular movements intact. Oropharynx clear. Neck: Supple. Non-tender. Respiratory: No respiratory distress. Clear and equal breath sounds bilaterally. Cardiovascular: Regular rate and rhythm. Abdominal: Normal Inspection. Non-tender. No distension. Normal Bowel Sounds. Back: Non-tender. No deformity or step off. Extremities: Moves all four extremities. Upper extremities: Normal inspection. Normal ROM. Lower extremities: Incision to left hip is clean, dry, and intact. Wound is excellent appearing. There is no active purulent drainage, no hematoma, fluctuance, or cellulitic component. Slight oozing between the sutures proximally which stops with pressure. Neurological: Normal cognition. AAOx4. Normal speech. Psychological: Normal affect. Normal Mood. Skin: Warm. Dry. Normal color. (ERIC LAND) Course <ERIC LAND - Last Filed: 02/01/17 19:24> - Laboratory Result Diagrams: 02/01/17 19:25 <NISHA SHANKAR - Last Filed: 02/04/17 15:21> - Re-evaluation Re-evalutation: 02/01/17 19:02 Patient presents to the emergency department [address] with a chief complaint of drain was pulled out. Patient had a left hip arthroplasty done by Dr. Regan on 01/22/2017 and was sent home with according to Dr. Regan a suction device. 2 days ago when they went to change his dressing they did not realize it was attached and they pulled it out. They were waiting for the intermediate doctor to come which did not happen today they noticed some bleeding to the area and so they called Dr. Regan and he said he would see them in the office on Saturday despite that the daughter wanted him sent to the emergency department for evaluation. On my examination well-appearing nontoxic hemodynamically stable the incision to the left hip is clean dry and intact and excellent appearing it does not have any active pus drainage hematoma or fluctuance there is no cellulitis crepitus necrosis at the proximal and he has a little bit of oozing in between the sutures which stops with pressure but I do not feel a hematoma or collection of blood underneath. The nurses placing a pressure dressing on not doing an H&H. I talked to Dr. Regan and he agrees pressure dressing as long as his hemoglobin is stable he will see him in the office on Saturday. 02/01/17 20:13 Patient's H&H is stable bleeding is controlled with quick clot and pressure dressing. Spoke with Dr. Regan once patient follow-up on Saturday as directed and return for increased worsening or new symptoms (NISHA SHANKAR) - Vital Signs Vital signs: Temp Pulse Resp BP Pulse Ox 97.3 F 57 L 20 149/78 H 100 02/01/17 22:29 02/01/17 22:29 02/01/17 22:29 02/01/17 22:29 02/01/17 22:29 - Laboratory Laboratory results interpreted by me: 02/01/17 19:25 RBC 3.43 L Hgb 10.8 L Hct 31.6 L RDW 14.4 H Monocytes % (Manual) 2 L Discharge <ERIC LAND - Last Filed: 02/01/17 19:24> <NISHA SHANKAR - Last Filed: 02/04/17 15:21> - Discharge Clinical Impression: Encounter for wound re-check, post op wound bleeding controlled Condition: Stable Disposition: HOME, SELF-CARE Additional Instructions: [facility] [address] [place] [id number] Wound Care/ post op incisional bleeding I have spoken with Dr. Regan your surgeon. Your hemoglobin is stable we applied quick clot to the oozing from the wound he states he will see you in follow-up on Saturday as scheduled If bleeding occurs postoperatively apply firm pressure over the site for 10 minutes and it will usually stop. If it persists call the office and return during office hours or go to the emergency room in the evenings or weekends. Return to the emergency department sooner for increasing worsening or new symptoms Referrals: GREGORIO FULLER PA-C [Primary Care Provider] - Follow up as needed EHSAN REGAN MD [ACTIVE STAFF] - (follow up on Saturday as scheduled return for increasing worsening or new symptoms) Scribe Attestation: 02/01/17 20:13 I personally performed the services described in the documentation reviewed the documentation recorded by my scribe in my presence and it accurately and completely records my words and actions (NISHA SHANKAR) Scribe Documentation - Scribe Written by Scralcon:: Elizabeth Gonzalez, 02/01/[id number] acting as scribe for :: Geraldo <ERIC LAND - Last Filed: 02/01/17 19:24>
[2017-02-01 19:34] LABS: HEMATOCRIT 31.6 % (37.9-51.0); HEMOGLOBIN 10.8 g/dL (13.5-17.0); HGB HCT DIFFERENCE 0.8; MEAN CORPUSCULAR HEMOGLOBIN 31.4 pg (27.0-33.4); MEAN CORPUSCULAR HGB CONC 34.1 g/dL (32.0-36.0); MEAN CORPUSCULAR VOLUME 92 fl (80-97); RED BLOOD COUNT 3.43 10^6/uL (4.35-5.55); RED CELL DISTRIBUTION WIDTH 14.4 % (11.5-14.0); WHITE BLOOD COUNT 7.8 10^3/uL (4.0-10.5)
[2017-02-01 19:53] LABS: BASOPHILS % (MANUAL) 0 % (0-2); EOSINOPHILS % (MANUAL) 4 % (0-6); LYMPHOCYTES % (MANUAL) 27 % (13-45); TOTAL CELLS COUNTED 100
[2017-02-01 19:55] LABS: ANISOCYTOSIS SLIGHT; TOXIC VACUOLATION PRESENT
[2017-02-01 22:33] VITALS: BP 149/78
== END 2017-02-01 22:39 | disposition home or self-care (01) ==
LOC: ER 18:24
DX: L76.22 Postprocedural hemorrhage of skin and subcutaneous tissue following other procedure (principal); R53.1 Weakness; Z87.891 Personal history of nicotine dependence
CPT/HCPCS: 36415; 85025; 99285

== ENCOUNTER 2017-02-07 12:31 | Emergency (ER) | payer MEDICARE, OTHER ==
--- NOTE | 2017-02-07 13:31 | ER Document Report ---
HPI - HPI Notes: Pt is a 76yo male s/p MARILYN on January 22 2017 who presents to the ED c/o bleeding from op site. Pt states that he was doing physical therapy today when he did a squat and began bleeding. Pt reports having a f/u 2 days ago and everything was okay at that time. Pt states he also had a routine wound dressing change this morning. He has not noticed any purulent discharge or worsening pain from the incision repair site. Denies any headache, fever, URI, sore throat, chest pain, palpitations, syncope, cough, shortness of breath, wheeze, dyspnea, abdominal pain, nausea/vomiting/diarrhea, dysuria, hematuria, or rash. - ROS Notes: REVIEW OF SYSTEMS: CONSTITUTIONAL : Denies fever, chills, or sweats. Denies recent illness. EENT: Denies eye, ear, throat, or mouth pain or symptoms. Denies nasal or sinus congestion or discharge. Denies throat, tongue, or mouth swelling or difficulty swallowing. CARDIOVASCULAR: Denies chest pain. Denies palpitations or racing or irregular heart beat. Denies ankle edema. RESPIRATORY: Denies cough, cold, or chest congestion. Denies shortness of breath, difficulty breathing, or wheezing. GASTROINTESTINAL: Denies abdominal pain or distention. Denies nausea, vomiting , or diarrhea. Denies blood in vomitus, stools, or per rectum. Denies black, tarry stools. Denies constipation. GENITOURINARY: Denies difficulty urinating, painful urination, burning, frequency, blood in urine, or discharge. MUSCULOSKELETAL: see hpi SKIN: see hpi NEUROLOGICAL: Denies confusion or altered mental status. Denies passing out or loss of consciousness. Denies dizziness or lightheadedness. Denies headache. Denies weakness or paralysis or loss of use of either side. Denies problems with gait or speech. Denies sensory loss, numbness, or tingling. ALL OTHER SYSTEMS REVIEWED AND NEGATIVE. Dictation was performed using [employer] voice recognition software - REPRODUCTIVE Reproductive: DENIES: : Past Medical History - Social History Smoking Status: Unknown if Ever Smoked Family History: Reviewed & Not Pertinent - Past Medical History Cardiac Medical History: Reports: Hx Hypercholesterolemia, Hx Hypertension Denies: Hx Atrial Fibrillation, Hx Congestive Heart Failure, Hx Coronary Artery Disease, Hx Heart Attack, Hx Peripheral Vascular Disease, Hx Heart Murmur Renal/ Medical History: Reports: Hx Benign Prostatic Hyperplasia. Denies: Hx End Stage Renal Disease, Hx Kidney Stones, Hx Peritoneal Dialysis Musculoskeltal Medical History: Reports Hx Arthritis, Denies Hx Fibromyalgia, Denies Hx Muscular Dystrophy Traumatic Medical History: Denies: Hx Fractures Past Surgical History: Reports: Hx Orthopedic Surgery - L knee. Denies: Hx Appendectomy, Hx Bowel Surgery, Hx Cholecystectomy, Hx Coronary Artery Bypass Graft, Hx Gastric Bypass Surgery, Hx Herniorrhaphy, Hx Pacemaker, Hx Tonsillectomy - Immunizations Immunizations up to date: Yes Hx Diphtheria, Pertussis, Tetanus Vaccination: Yes Hx Pneumococcal Vaccination: 06/24/14 Vertical Provider Document - CONSTITUTIONAL Agree With Documented VS: Yes Notes: PHYSICAL EXAMINATION: GENERAL: Well-appearing, well-nourished and in no acute distress. obese. LUNGS: Breath sounds clear to auscultation bilaterally and equal. No wheezes rales or rhonchi. HEART: IRR without murmurs, rubs, gallops. Musculoskeletal: Lt hip: + large incision noted s/p MARILYN and staple removal. Generally the wound is closed with exception to the proximal portion of the wound which appears to be bleeding and draining. No purulent discharge, red streaks, or abscess noted. Extremities: + 2-3+ pitting edema b/l. Capillary refill less than 3 seconds. NEUROLOGICAL: Normal sensory, motor exams PSYCH: Normal mood, normal affect. SKIN: see MSK exam. - INFECTION CONTROL TRAVEL OUTSIDE OF THE [place] IN LAST 30 DAYS: No - RESPIRATORY O2 Sat by Pulse Oximetry: 99 Course - Re-evaluation Re-evalutation: 02/07/17 13:55 Pt is an afebrile, well-hydrated, 76yo male who presents to the ED with mild wound dehiscence s/p MARILYN on january 22 & physical therapy session today. Vitals are stable. PE otherwise unremarkable at this time aside from the mild bloody/serous discharge. Reviewed case with Dr. Perez who also evaluated the patient. Reviewed case with the orthopedic surgeon Dr. Garrett who wanted to see the patient this afternoon after wound dressing applied in the ED, but there is no transport available to take the patient to the clinic this afternoon. Reviewed again with Dr. Garrett who will see the patient tomorrow morning in his office. Conservative measures otherwise for symptoms. Recheck with Ortho tomorrow. Recheck with PCM this week as well. Return to the ED with any worsening/concerning symptoms otherwise as reviewed in discharge. Patient is in agreement. - Vital Signs Vital signs: Temp Pulse Resp BP Pulse Ox 98.1 F 36 L 20 139/67 H 99 02/07/17 12:34 02/07/17 12:34 02/07/17 12:34 02/07/17 12:34 02/07/17 12:34 Discharge - Discharge Clinical Impression: Wound dehiscence, surgical Qualifiers: Encounter type: initial encounter Qualified Code(s): T81.31XA - Disruption of external operation (surgical) wound, not elsewhere classified, initial encounter Condition: Stable Disposition: HOME, SELF-CARE Additional Instructions: Dressing changes as directed Keep the skin clean May wash with soap and water Keep scheduled appointment with Orthopedics tomorrow for a wound recheck Recheck with PCM this week as well Return to the ED with any worsening symptoms and/or development of fever, headache, chest pain, palpitations, syncope, shortness of breath, trouble breathing, abdominal pain, n/v/d, blood in stool/urine, abscess, purulent discharge, or other worsening symptoms that are concerning to you. Forms: Elevated Blood Pressure Referrals: EHSAN GARRETT MD [ACTIVE STAFF] - Follow up tomorrow AJ DUDLEY MD [Primary Care Provider] - Follow up in 3-5 days
[2017-02-07] MEDS ORDERED: OXYCODONE HCL IR 5 MG TABLET PO ONE (13:35)
[2017-02-07 15:25] VITALS: BP 131/78
== END 2017-02-07 15:10 | disposition home or self-care (01) ==
LOC: ER 12:31
DX: T81.31XA Disruption of external operation (surgical) wound, not elsewhere classified, initial encounter (principal); Y83.8 Other surgical procedures as the cause of abnormal reaction of the patient, or of later complication, without mention of misadventure at the time of the procedure; Z96.642 Presence of left artificial hip joint; I10 Essential (primary) hypertension
CPT/HCPCS: 99283; A9270

== ENCOUNTER 2017-02-09 03:29 | Emergency (ER) | payer MEDICARE, OTHER ==
[2017-02-09 04:21] LABS: ABSOLUTE BASOPHILS # (AUTO) 0.1 10^3/uL (0.0-0.2); ABSOLUTE EOSINOPHILS # (AUTO) 0.2 10^3/uL (0.0-0.6); ABSOLUTE LYMPHOCYTES (AUTO) 0.8 10^3/uL (0.5-4.7); ABSOLUTE MONOCYTES (AUTO) 1.1 10^3/uL (0.1-1.4); ABSOLUTE NEUT (AUTO) 6.6 10^3/uL (1.7-8.2); EOSINOPHILS % (AUTO) 2.3 % (0-6); HEMATOCRIT 29.3 % (37.9-51.0); HGB HCT DIFFERENCE 0.7; MEAN CORPUSCULAR HEMOGLOBIN 31.3 pg (27.0-33.4); MEAN CORPUSCULAR HGB CONC 34.1 g/dL (32.0-36.0); MEAN CORPUSCULAR VOLUME 92 fl (80-97); MONOCYTES % (AUTO) 12.6 % (3-13); RED CELL DISTRIBUTION WIDTH 15.1 % (11.5-14.0); SEGMENTED NEUTROPHILS % (AUTO) 75.1 % (42-78); WHITE BLOOD COUNT 8.8 10^3/uL (4.0-10.5)
--- NOTE | 2017-02-09 04:21 | ER Document Report ---
ED General - General Chief Complaint: Post Surgical Bleeding Stated Complaint: POST SURGERY BLEEDING Time Seen by Provider: 02/09/17 03:38 Notes: Patient is a 76-year-old male who is approximately 2 weeks postop from a left hip arthroplasty that was done electively due to severe osteoarthritis of the left hip. This was performed by Dr. Regan. He was sent to rehabilitation facility. Since then he has had recurrent difficulties with bleeding from the wound. Was on Xarelto but they stopped this approximately 2 days ago. He was seen yesterday by Dr. Ryan office dressing was changed. He is to continue had some bleeding and therefore was brought to the ER. No fevers. No vomiting. No wound infection. No other complaints at this time. He says the bleeding always comes from the same area where the drain was initially in the wound. TRAVEL OUTSIDE OF THE [place] IN LAST 30 DAYS: No - Related Data Allergies/Adverse Reactions: No Known Allergies Allergy (Unverified 07/18/15 02:34) Past Medical History - Social History Smoking Status: Unknown if Ever Smoked Frequency of alcohol use: None Drug Abuse: None Family History: Reviewed & Not Pertinent - Past Medical History Cardiac Medical History: Reports: Hx Hypercholesterolemia, Hx Hypertension Denies: Hx Atrial Fibrillation, Hx Congestive Heart Failure, Hx Coronary Artery Disease, Hx Heart Attack, Hx Peripheral Vascular Disease, Hx Heart Murmur Renal/ Medical History: Reports: Hx Benign Prostatic Hyperplasia. Denies: Hx End Stage Renal Disease, Hx Kidney Stones, Hx Peritoneal Dialysis Musculoskeltal Medical History: Reports Hx Arthritis, Denies Hx Fibromyalgia, Denies Hx Muscular Dystrophy Traumatic Medical History: Denies: Hx Fractures Past Surgical History: Reports: Hx Orthopedic Surgery - L knee. Denies: Hx Appendectomy, Hx Bowel Surgery, Hx Cholecystectomy, Hx Coronary Artery Bypass Graft, Hx Gastric Bypass Surgery, Hx Herniorrhaphy, Hx Pacemaker, Hx Tonsillectomy - Immunizations Immunizations up to date: Yes Hx Diphtheria, Pertussis, Tetanus Vaccination: Yes Hx Pneumococcal Vaccination: 06/24/14 Review of Systems - Review of Systems Notes: My Normal Review Basic REVIEW OF SYSTEMS: CONSTITUTIONAL : Denies fever, chills, or sweats. Denies recent illness. MUSCULOSKELETAL: Recent surgery to left hip SKIN: Denies rash or skin lesions. HEMATOLOGIC : Was on Xarelto but has since stopped. NEUROLOGICAL: Denies altered mental status or loss of consciousness. Denies headache. Denies weakness or paralysis or loss of use of either side. Denies problems with gait or speech. Denies sensory or motor loss. ALL OTHER SYSTEMS REVIEWED AND NEGATIVE. Physical Exam - Notes Notes: General Appearance: Well nourished, alert, cooperative, no acute distress, mild obvious discomfort. Vitals: reviewed, See vital signs table. Extremities: strength 5/5 in all extremities, good pulses in all extremities, patient has incision site over the left hip. Patient has a small pinpoint area of slow oozing of blood tinged serous fluid at the proximal most section of the incision. No abnormal drainage. No foul smell. No redness or erythema spreading from the wound. No signs of infection. Skin: warm, dry, appropriate color, no rash Neuro: speech clear, oriented x 3, normal affect, responds appropriately to questions. Course - Re-evaluation Re-evalutation: 02/09/17 05:18 I have changed the dressing on the wound. I applied a Surgifoam dressing. I did repeat his blood work. His blood work is almost completely unchanged. He has a very slight leukocytosis. His hemoglobin is almost identical to where it was 2 days ago. I do not see signs of infection as patient has no redness or swelling or significant erythema. He has no fevers. There is no foul smell to drainage. The drainage looks like blood-tinged serous fluid. I did call Dr. Regan who said that this is a liquefied hematoma will continue to slowly drain until it is completely gone. He says that he requested that the usp just do frequent dressing changes. He says this is the continued recommendation. I agree with him as the fluid does seem consistent with that of a delayed breakdown of the hematoma. I will discharge patient back to usp with Dr. Regan's instructions. Patient to return to ER if he has fevers, foul-smelling drainage, or any spreading redness of the wound. Dictation of this chart was performed using voice recognition software; therefore, there may be some unintended grammatical errors. - Laboratory Result Diagrams: 02/09/17 03:40 Laboratory results interpreted by me: 02/09/17 03:40 RBC 3.20 L Hgb 10.0 L Hct 29.3 L RDW 15.1 H Lymphocytes % 9.0 L Discharge - Discharge Clinical Impression: Wound drainage Condition: Good Disposition: HOME, SELF-CARE Additional Instructions: Patient's wound currently does not show signs of infection. I did change the dressing. I did apply some epinephrine to the wound itself. I did discuss the case with Dr. Regan who says that the drainage represents a liquefied hematoma and he will most likely continue to have some drainage until it is complete. He just requests frequent dressing changes. His hemoglobin is unchanged in comparison to where it was 2 days ago. This drainage does not appear to represent actual new bleeding. Please have the patient return if he develops any redness or swelling to the wound, foul-smelling drainage, or fevers. Please return if the drainage appears to be pure blood as opposed to blood- tinged serous fluid. Referrals: GREGORIO FULLER PA-C [Primary Care Provider] - Follow up as needed
[2017-02-09] MEDS ORDERED: LIDOCAINE 1%/EPINEPHRINE INJ 20 ML VIAL INJ ONE (04:44)
[2017-02-09 08:10] VITALS: BP 137/75
== END 2017-02-09 08:20 | disposition home or self-care (01) ==
LOC: ER 03:29
DX: M96.830 Postprocedural hemorrhage of a musculoskeletal structure following a musculoskeletal system procedure (principal); Z96.642 Presence of left artificial hip joint
CPT/HCPCS: 99283; 36415; 85025; J3490

== ENCOUNTER 2017-02-09 17:27 | Emergency (ER) | payer MEDICARE, OTHER ==
[2017-02-09 17:54] VITALS: BP 141/69
--- NOTE | 2017-02-09 18:57 | ER Document Report ---
ED General - General Chief Complaint: Wound Recheck Stated Complaint: WOUND CHECK Time Seen by Provider: 02/09/17 18:03 TRAVEL OUTSIDE OF THE [place] IN LAST 30 DAYS: No - HPI Patient complains to provider of: Surgical wound evaluation Notes: Patient coming in for evaluation of a left hip surgical wound. Patient was seen earlier today by nighttime staff and discharged home. Patient coming in today because of continued drainage. At that time last night orthopedic to perform the surgery was contacted states patient has draining hematoma continue to expect draining patient arrived here today for similar complaint denies any changes. Patient looks to be in the same dressing patient states his dressing was unchanged once today patient supposed to be having twice daily dressing changes - Related Data Allergies/Adverse Reactions: No Known Allergies Allergy (Unverified 07/18/15 02:34) Past Medical History - Social History Smoking Status: Never Smoker Chew tobacco use (# tins/day): No Drug Abuse: None Family History: Reviewed & Not Pertinent - Past Medical History Cardiac Medical History: Reports: Hx Hypercholesterolemia, Hx Hypertension Denies: Hx Atrial Fibrillation, Hx Congestive Heart Failure, Hx Coronary Artery Disease, Hx Heart Attack, Hx Peripheral Vascular Disease, Hx Heart Murmur Renal/ Medical History: Reports: Hx Benign Prostatic Hyperplasia. Denies: Hx End Stage Renal Disease, Hx Kidney Stones, Hx Peritoneal Dialysis Musculoskeltal Medical History: Reports Hx Arthritis, Denies Hx Fibromyalgia, Denies Hx Muscular Dystrophy Traumatic Medical History: Denies: Hx Fractures Past Surgical History: Reports: Hx Orthopedic Surgery - L knee. Denies: Hx Appendectomy, Hx Bowel Surgery, Hx Cholecystectomy, Hx Coronary Artery Bypass Graft, Hx Gastric Bypass Surgery, Hx Herniorrhaphy, Hx Pacemaker, Hx Tonsillectomy - Immunizations Immunizations up to date: Yes Hx Diphtheria, Pertussis, Tetanus Vaccination: Yes Hx Pneumococcal Vaccination: 06/24/14 Review of Systems - Review of Systems Constitutional: No symptoms reported EENT: No symptoms reported Cardiovascular: No symptoms reported Respiratory: No symptoms reported Gastrointestinal: No symptoms reported Genitourinary: No symptoms reported Male Genitourinary: No symptoms reported Musculoskeletal: No symptoms reported Skin: Other - Wound evaluation Hematologic/Lymphatic: No symptoms reported Neurological/Psychological: No symptoms reported -: Yes All other systems reviewed and negative Physical Exam - Vital signs Vitals: Temp Pulse Resp BP Pulse Ox 100.1 F 77 16 141/69 H 100 02/09/17 17:53 02/09/17 17:53 02/09/17 17:53 02/09/17 17:53 02/09/17 17:53 Interpretation: Normal - General General appearance: Appears well, Alert - HEENT Head: Normocephalic, Atraumatic Eyes: Normal Pupils: PERRL - Respiratory Respiratory status: No respiratory distress Chest status: Nontender Breath sounds: Normal Chest palpation: Normal - Cardiovascular Rhythm: Regular Heart sounds: Normal auscultation Murmur: No - Abdominal Inspection: Normal Distension: No distension Bowel sounds: Normal Tenderness: Nontender Organomegaly: No organomegaly - Back Back: Normal, Nontender - Extremities General upper extremity: Normal inspection, Nontender, Normal color, Normal ROM , Normal temperature General lower extremity: Normal color, Normal weight bearing. No: Normal inspection, Zaheer's sign, Other - Patient with a left hip wound was evaluated showing erythema along the wound edges cannot express any purulent material - Neurological Neuro grossly intact: Yes Cognition: Normal Orientation: AAOx4 On[place] Coma Scale Eye Opening: Spontaneous [place] Coma Scale Verbal: Oriented [place] Coma Scale Motor: Obeys Commands [place] Coma Scale Total: 15 Speech: Normal Motor strength normal: LUE, RUE, LLE, RLE Sensory: Normal - Psychological Associated symptoms: Normal affect, Normal mood - Skin Skin Temperature: Warm Skin Moisture: Dry Skin Color: Normal Course - Re-evaluation Re-evalutation: 02/09/17 22:43 With the patient's permission I did obtain a photo of the patient's wound there is no patient identifier on the picture I did send this to the orthopedic Dr. Regan that performed the surgery was able to evaluate the wound states does not look to have any change no signs of infection recommended discharge back to the detention with twice daily dressing changes - Vital Signs Vital signs: Temp Pulse Resp BP Pulse Ox 100.1 F 77 16 141/69 H 100 02/09/17 17:53 02/09/17 17:53 02/09/17 17:53 02/09/17 17:53 02/09/17 17:53 Discharge - Discharge Clinical Impression: Wound drainage Wound dehiscence, surgical Qualifiers: Encounter type: subsequent encounter Qualified Code(s): T81.31XD - Disruption of external operation (surgical) wound, not elsewhere classified, subsequent encounter Condition: Good Disposition: HOME, SELF-CARE Additional Instructions: I was able to discuss and with the patient's permission show a picture of the wound to Dr. Regan who recommends dressing changes twice a day and continue to follow-up as scheduled. Patient should return for any fevers.
== END 2017-02-10 07:29 | disposition home or self-care (01) ==
LOC: ER 17:27
DX: M96.830 Postprocedural hemorrhage of a musculoskeletal structure following a musculoskeletal system procedure (principal)
CPT/HCPCS: 99282

== ENCOUNTER 2019-01-31 21:41 | Emergency (ER) | payer MEDICARE ==
--- NOTE | 2019-01-31 23:07 | ER Document Report ---
ED General - General Chief Complaint: Wound Recheck Stated Complaint: LEFT LEG WOUND Time Seen by Provider: 01/31/19 22:52 Primary Care Provider: GREGORIO FULLER PA-C [Primary Care Provider] - Follow up as needed TRAVEL OUTSIDE OF THE [place] IN LAST 30 DAYS: No - HPI Notes: 78-year-old male presents for evaluation of distal left lower leg wound. In early December the patient currently scraped it on a transfer bus. He developed a wound that is now been draining since then. His family thinks is been worse over the last week, was started on Bactrim a day or 2 ago. They show me a picture of what the wound looks like that it appears to be unchanged. They are concerned because he has not seen the wound clinic for 2 weeks. Denies fever chills or sweats. Describes constant mild aching and burning pain in the region. Nonradiating. Gradual onset. Has a history of severe venous stasis and chronic lower extremity edema. No other modifying factors, no other associated symptoms, no other provocative or palliative factors. - Related Data Allergies/Adverse Reactions: No Known Allergies Allergy (Unverified 07/18/15 02:34) Past Medical History - General Information source: Patient - Social History Smoking Status: Unknown if Ever Smoked Family History: CAD, Hypertension - Past Medical History Cardiac Medical History: Reports: Hx Atrial Fibrillation, Hx Hype rcholesterolemia, Hx Hypertension Denies: Hx Congestive Heart Failure, Hx Coronary Artery Disease, Hx Heart Attack, Hx Peripheral Vascular Disease, Hx Heart Murmur Renal/ Medical History: Reports: Hx Benign Prostatic Hyperplasia. Denies: Hx End Stage Renal Disease, Hx Kidney Stones, Hx Peritoneal Dialysis Musculoskeletal Medical History: Reports Hx Arthritis, Denies Hx Fibromyalgia, Denies Hx Muscular Dystrophy Psychiatric Medical History: Denies: Hx Depression Traumatic Medical History: Denies: Hx Fractures Past Surgical History: Reports: Hx Orthopedic Surgery - L knee. Denies: Hx Appendectomy, Hx Bowel Surgery, Hx Cholecystectomy, Hx Coronary Artery Bypass G raft, Hx Gastric Bypass Surgery, Hx Herniorrhaphy, Hx Pacemaker, Hx Tonsillectomy - Immunizations Immunizations up to date: Yes Hx Diphtheria, Pertussis, Tetanus Vaccination: Yes Hx Pneumococcal Vaccination: 06/24/14 Review of Systems - Review of Systems Notes: Review of systems as in the history of present illness, otherwise negative x 10 systems. Physical Exam - Vital signs Vitals: Temp Pulse Resp BP Pulse Ox 97.5 F 54 L 18 140/76 H 97 01/31/19 22:17 01/31/19 22:17 01/31/19 22:17 01/31/19 22:17 01/31/19 22:17 - Notes Notes: General: Well developed . HEENT: Normocephalic, atraumatic. Pupils equal round reactive to light. No JVD. Chest: No trauma. Respiratory: Good air exchange, normal excursion. Cardiac: Regular rhythm. No murmurs or gallops. Abdomen: Soft, benign. Nondistended. Nontender. Back: No asymmetry or gross abnormality. Motor: Grossly normal power and tone. Neurologic: Alert, nonfocal. Cranial nerves II-12 are intact. Sensation intact. Vascular: Well perfused. Normal peripheral pulses. Skin: No petechiae or purpura. Extremities: There is an approximately 3 cm circular wound with granulation tissue, extending approximate 2 cm around the wound there is mild blanching erythema, chronic venous stasis changes are noted in the lower extremity. Course - Vital Signs Vital signs: Temp Pulse Resp BP Pulse Ox 97.5 F 54 L 18 140/76 H 97 01/31/19 22:17 01/31/19 22:17 01/31/19 22:17 01/31/19 22:17 01/31/19 22:17 - Laboratory Result Diagrams: 02/01/19 00:10 02/01/19 00:10 Laboratory results interpreted by me: 02/01/19 02/01/19 00:10 00:10 RBC 4.24 L Hgb 13.0 L Sodium 135.0 L - Transfer of Care Notes: 01/31/19 23:07 Nontoxic-appearing elderly male presents with chronic wound and drainage. Mild cellulitis is noted. Clinically I do not suspect systemic toxicity. Plan to proceed with plain films to evaluate for radiopaque foreign body or bony invasion, basic labs, reassess. 02/01/19 01:19 Patient is done well throughout his ED course. Antibiotics been given, plain films show no evidence of osteomyelitis. He is discharged home with a prescription for Augmentin, close outpatient follow-up. Augmentin should broaden the coverage over Bactrim alone 02/01/19 01:21 Discharge - Discharge Clinical Impression: Cellulitis Qualifiers: Site of cellulitis: other site Qualified Code(s): L03.818 - Cellulitis of other sites Condition: Good Disposition: HOME, SELF-CARE Instructions: Cellulitis ([facility]) Additional Instructions: Please contact your primary care doctor tomorrow to arrange close follow-up, you should be seen at the wound center as soon as possible, return if worsening Prescriptions: Amox Tr/Potassium Clavulanate [Augmentin 875-125 mg Tablet] 1 tab PO BID #20 tablet Referrals: GREGORIO FULLER PA-C [Primary Care Provider] - Follow up as needed
[2019-01-31] MEDS ORDERED: AMPICILLIN SOD/SULBACTAM 3 GM VIAL IV ONE (23:45)
--- NOTE | 2019-01-31 23:45 | RADIOLOGY REPORT (SQ) ---
EXAM DESCRIPTION: XR TIBIA FIBULA 2 VIEWS COMPLETED DATE/TME: 01/31/2019 23:04 CLINICAL HISTORY: 78 years, Male, Distal tibia wound, evaluate for osteomyelitis COMPARISON: None. NUMBER OF VIEWS: 4 TECHNIQUE: 4 view left tibia fibula LIMITATIONS: None. FINDINGS: Negative for acute fracture or dislocation. Osteopenia. Postsurgical change of the knee. Subcutaneous edema. Soft tissue injury/ulceration of the medial ankle. No underlying bony destruction. Ankle mortise intact IMPRESSION: No acute osseous abnormality or radiographic evidence for acute osteomyelitis.. copyright 2010 [employer]- All Rights Reserved
[2019-02-01 00:28] LABS: ABSOLUTE BASOPHILS # (AUTO) 0.1 10^3/uL (0.0-0.2); TOTAL CELLS COUNTED % (AUTO) 100 %; WHITE BLOOD COUNT 6.6 10^3/uL (4.0-10.5)
[2019-02-01 00:38] LABS: ABSOLUTE EOSINOPHILS # (AUTO) 0.3 10^3/uL (0.0-0.6); ABSOLUTE LYMPHOCYTES (AUTO) 1.5 10^3/uL (0.5-4.7); ABSOLUTE MONOCYTES (AUTO) 0.6 10^3/uL (0.1-1.4); ABSOLUTE NEUT (AUTO) 4.1 10^3/uL (1.7-8.2); LYMPHOCYTES % (AUTO) 22.3 % (13-45); MEAN CORPUSCULAR HEMOGLOBIN 30.7 pg (27.0-33.4); MEAN CORPUSCULAR HGB CONC 34.2 g/dL (32.0-36.0); MEAN CORPUSCULAR VOLUME 90 fl (80-97); MONOCYTES % (AUTO) 9.4 % (3-13); PLATELET COUNT 249 10^3/uL (150-450); RED BLOOD COUNT 4.24 10^6/uL (4.35-5.55); RED CELL DISTRIBUTION WIDTH 13.7 % (11.5-14.0); SEGMENTED NEUTROPHILS % (AUTO) 62.3 % (42-78)
[2019-02-01 00:47] LABS: ANION GAP 6 (5-19); BLOOD UREA NITROGEN 16 mg/dL (7-20); CALCIUM 9.1 mg/dL (8.4-10.2); CARBON DIOXIDE 29 mmol/L (22-30); CHLORIDE 100 mmol/L (98-107); GLUCOSE 108 mg/dL (75-110); POTASSIUM 4.1 mmol/L (3.6-5.0)
[2019-02-01 02:26] VITALS: BP 133/85
== END 2019-02-01 02:27 | disposition home or self-care (01) ==
LOC: ER 21:41
DX: L03.818 Cellulitis of other sites (principal); S81.802A Unspecified open wound, left lower leg, initial encounter; W22.8XXA Striking against or struck by other objects, initial encounter; I10 Essential (primary) hypertension
CPT/HCPCS: 99283; 96365; 36415; 85025; 80048; 73590; J0295

== ENCOUNTER → 2019-02-17 | Outpatient (CLI) | payer MEDICARE ==
--- NOTE | 2019-02-17 19:15 | XCELERA REPORT ---
[address] [address] Lower Extremity Venous Evaluation Procedure: A bilateral duplex scan of the lower extremity veins was performed. The evaluation included responses to compression and other maneuvers with patient in the supine and standing positions to assess venous insufficiency. Right Sided Venous Evaluation Deep venous system evaluation shows patent veins with no significant reflux identified. Sapheno Femoral junction: no reflux. Greater Saphenous vein, Proximal thigh: reflux: 2.8 second reflux. 6.1 mm diameter. Greater Saphenous vein, mid thigh: reflux:1.7 second reflux. 7.6 mm diameter. Greater Saphenous vein, Distal thigh: reflux:no reflux. Greater Saphenous vein, Proximal below knee: reflux: none Greater Saphenous vein, Mid below knee: reflux: 1.3 second reflux. 5.7 mm diameter.. Greater Saphenous vein, Distal below knee: reflux: no reflux. No significant Perforators identified. Left Sided Venous Evaluation Deep venous system evaluation shows patent veins with reflux identified, 1.6 seconds, in the Femoral vein only. Saphena Femoral junction: no reflux. Greater Saphenous vein, Proximal thigh: reflux: no reflux. Greater Saphenous vein, mid thigh: reflux:1.4 second reflux. 6.6 mm diameter. Greater Saphenous vein, Distal thigh: reflux:1.5 second reflux. 7.3 mm diameter. Greater Saphenous vein, Proximal below knee: reflux::1.8 second reflux. 10.5 mm diameter. Greater Saphenous vein, Mid below knee: reflux: 1.5 second reflux. 6.4 mm diameter.. Greater Saphenous vein, Distal below knee: reflux: no reflux. No significant Perforators identified. Interpretation Summary No duplex evidence of DVT or obstruction in the bilateral lower extremities. Bilateral superficial reflux, as noted. Deep venous reflux limited to left Femoral. Name: DEBBIE ROJAS Age: 78 yrs Gender: Male : 1940 Patient Status: Outpatient Patient Location: Study Date: 02/17/2019 01:39 PM Reason For Study: LT CALF ULCER Ordering Physician: CARYL MARTIN Performed By: Antonio Matthews : CARYL MARTIN > Caryl Martin
--- NOTE | 2019-02-18 12:42 | XCELERA REPORT ---
[address] [address] Lower Extremity Arterial Evaluation Name: DEBBIE ROJAS Age: 78 yrs Gender: Male : 1940 Patient Status: Outpatient Patient Location: SP Study Date: 02/17/2019 01:18 PM Procedure: A color flow and duplex scan of the lower extremity arteries was performed bilaterally with velocity and waveform anaylsis. Reason For Study: LT CALF ULCER Ordering Physician: CARYL MARTIN Performed By: Antonio Matthews Measurements and Calculations Right Left TIRE BUFFER PSV 91.8 113.8 cm/sec Prox PFA PSV -132.0 -58.9 cm/sec Prox SFA PSV 133.6 86.6 cm/sec Mid SFA PSV -86.1 -73.3 cm/sec Dist SFA PSV -74.2 -74.6 cm/sec Prox Pop A PSV 75.6 89.9 cm/sec Dist ANNE-MARIE PSV 95.8 35.7 cm/sec Dist SKETCH MAKER PSV 86.4 91.0 cm/sec Grant Pedis PSV 92.3 82.9 cm/sec Right Side Arterial Evaluation Normal velocity and triphasic waveforms noted from the Common Femoral artery to the infrageniculate vessels. Ankle Brachial index 1.22 . Left Side Arterial Evaluation Normal velocity and triphasic waveforms noted from the Common Femoral artery to the infrageniculate vessels. Ankle Brachial index 1.28 . Interpretation Summary No hemodynamically significant lesions in the bilateral lower extremities, on duplex imaging, at rest. Duplex findings normal. ROXANNE's are in normal range, completely supportive of duplex findings. : CARYL MARTIN > Caryl Martin
== END ==
LOC: SP 11:52
PROVIDERS: ATTEND Surgery
DX: L97.222 Non-pressure chronic ulcer of left calf with fat layer exposed (principal)
CPT/HCPCS: 93922; 93925; 93970

== ENCOUNTER 2019-04-11 15:38 | Emergency (ER) | payer MEDICARE ==
--- NOTE | 2019-04-11 16:15 | ER Document Report ---
ED Medical Screen (RME) - General Chief Complaint: Chest Congestion Stated Complaint: CONJESTION Time Seen by Provider: 04/11/19 16:12 Primary Care Provider: CARYL MARTIN MD [Primary Care Provider] - Follow up as needed Mode of Arrival: Ambulatory Information source: Patient Notes: 79-year-old male presented to ED for complaint of cough congestion sometimes difficulty swallowing. He states he does not have a sore throat just sometimes when he is coughed he is has a lot of trouble swallowing due to phlegm in his throat. He states is been going on for about 3 days. He denies any fevers. He states he does not get any of the sputum up and just comes up to the back of his throat. Denies any history of COPD or asthma. States he has high blood pressure. I have greeted and performed a rapid initial assessment of this patient. A comprehensive ED assessment and evaluation of the patient, analysis of test results and completion of medical decision making process will be conducted by an additional ED providers. TRAVEL OUTSIDE OF THE [place] IN LAST 30 DAYS: No - Related Data Allergies/Adverse Reactions: No Known Allergies Allergy (Verified 04/11/19 16:09) Past Medical History - Past Medical History Cardiac Medical History: Reports: Hx Atrial Fibrillation, Hx Hypercholesterolemia, Hx Hypertension Denies: Hx Congestive Heart Failure, Hx Coronary Artery Disease, Hx Heart Attack, Hx Peripheral Vascular Disease, Hx Heart Murmur Renal/ Medical History: Reports: Hx Benign Prostatic Hyperplasia. Denies: Hx End Stage Renal Disease, Hx Kidney Stones, Hx Peritoneal Dialysis Musculoskeltal Medical History: Reports Hx Arthritis, Denies Hx Fibromyalgia, Denies Hx Muscular Dystrophy Psychiatric Medical History: Denies: Hx Depression Traumatic Medical History: Denies: Hx Fractures Past Surgical History: Reports: Hx Orthopedic Surgery - L knee. Denies: Hx Appendectomy, Hx Bowel Surgery, Hx Cholecystectomy, Hx Coronary Artery Bypass Graft, Hx Gastric Bypass Surgery, Hx Herniorrhaphy, Hx Pacemaker, Hx Tonsillectomy - Immunizations Immunizations up to date: Yes Hx Diphtheria, Pertussis, Tetanus Vaccination: Yes Physical Exam - Vital signs Vitals: Temp Pulse Resp BP Pulse Ox 97.6 F 55 L 20 145/69 H 96 04/11/19 15:50 04/11/19 15:50 04/11/19 15:50 04/11/19 15:50 04/11/19 15:50 Course - Vital Signs Vital signs: Temp Pulse Resp BP Pulse Ox 97.6 F 55 L 20 145/69 H 96 04/11/19 15:50 04/11/19 15:50 04/11/19 15:50 04/11/19 15:50 04/11/19 15:50 Doctor's Discharge - Discharge Referrals: CARYL MARTIN MD [Primary Care Provider] - Follow up as needed
[2019-04-11 16:45] LABS: ABSOLUTE BASOPHILS # (AUTO) 0.1 10^3/uL (0.0-0.2); ABSOLUTE EOSINOPHILS # (AUTO) 0.3 10^3/uL (0.0-0.6); ABSOLUTE LYMPHOCYTES (AUTO) 1.8 10^3/uL (0.5-4.7); ABSOLUTE MONOCYTES (AUTO) 0.6 10^3/uL (0.1-1.4); ABSOLUTE NEUT (AUTO) 4.7 10^3/uL (1.7-8.2); BASOPHILS % (AUTO) 0.9 % (0-2); EOSINOPHILS % (AUTO) 4.1 % (0-6); HEMATOCRIT 40.5 % (37.9-51.0); HEMOGLOBIN 13.7 g/dL (13.5-17.0); LYMPHOCYTES % (AUTO) 23.7 % (13-45); MEAN CORPUSCULAR HEMOGLOBIN 30.8 pg (27.0-33.4); MEAN CORPUSCULAR HGB CONC 33.9 g/dL (32.0-36.0); MEAN CORPUSCULAR VOLUME 91 fl (80-97); MONOCYTES % (AUTO) 8.2 % (3-13); PLATELET COUNT 198 10^3/uL (150-450); RED BLOOD COUNT 4.46 10^6/uL (4.35-5.55); RED CELL DISTRIBUTION WIDTH 14.3 % (11.5-14.0); SEGMENTED NEUTROPHILS % (AUTO) 63.1 % (42-78); TOTAL CELLS COUNTED % (AUTO) 100 %; WHITE BLOOD COUNT 7.5 10^3/uL (4.0-10.5)
--- NOTE | 2019-04-11 17:02 | RADIOLOGY REPORT (SQ) ---
EXAM DESCRIPTION: CHEST 2 VIEWS COMPLETED DATE/TIME: 04/11/2019 4:38 pm REASON FOR STUDY: Cough congestion phlegm fatigue COMPARISON: 02/12/2017 EXAM PARAMETERS: NUMBER OF VIEWS: two views TECHNIQUE: Digital Frontal and Lateral radiographic views of the chest acquired. RADIATION DOSE: NA LIMITATIONS: none FINDINGS: LUNGS AND PLEURA: No opacities, masses or pneumothorax. No pleural effusion. MEDIASTINUM AND HILAR STRUCTURES: No masses or contour abnormalities. HEART AND VASCULAR STRUCTURES: Heart normal size. No evidence for failure. BONES: No acute findings. HARDWARE: None in the chest. OTHER: No other significant finding. IMPRESSION: NO ACUTE RADIOGRAPHIC FINDING IN THE CHEST. TECHNICAL DOCUMENTATION: JOB ID: [id number] [employer]- All Rights Reserved Reading location - IP/workstation name: [email or web address]
[2019-04-11 17:05] LABS: ALBUMIN 3.8 g/dL (3.5-5.0); ALKALINE PHOSPHATASE 103 U/L (38-126); ANION GAP 9 (5-19); ASPARTATE AMINO TRANSFERASE 36 U/L (17-59); BILIRUBIN,DIRECT 0.2 mg/dL (0.0-0.4); BILIRUBIN,TOTAL 0.6 mg/dL (0.2-1.3); BLOOD UREA NITROGEN 19 mg/dL (7-20); CARBON DIOXIDE 28 mmol/L (22-30); CHLORIDE 98 mmol/L (98-107); GLUCOSE 116 mg/dL (75-110); POTASSIUM 3.9 mmol/L (3.6-5.0); TOTAL PROTEIN 6.8 g/dL (6.3-8.2)
[2019-04-11 18:05] VITALS: BP 149/84
--- NOTE | 2019-04-11 18:29 | ER Document Report ---
ED General - General Chief Complaint: Chest Congestion Stated Complaint: CONJESTION Time Seen by Provider: 04/11/19 16:12 Primary Care Provider: CARYL MARTIN MD [ACTIVE STAFF] - Follow up as needed Mode of Arrival: Ambulatory TRAVEL OUTSIDE OF THE [place] IN LAST 30 DAYS: No - HPI Notes: Patient is a 79-year-old male with a history of hypertension who presents complaining of nasal congestion/discharge, postnasal drip, mostly dry, semi- productive cough that began 3 days ago. He has been able to eat and drink without difficulty. He is urinating normally and having normal bowel movements. Family within the household does have a similar illness. Denies drug allergies. No other concerns or complaints. Denies any headache, fever, neck pain, hoarseness, drooling, sore throat, chest pain, palpitations, syncope, shortness of breath, wheeze, dyspnea, abdominal pain, nausea/vomiting/diarrhea, urinary retention, dysuria, hematuria, or rash. - Related Data Allergies/Adverse Reactions: No Known Allergies Allergy (Verified 04/11/19 16:09) Home Medications: losartan Past Medical History - General Information source: Patient - Social History Smoking Status: Never Smoker Chew tobacco use (# tins/day): No Frequency of alcohol use: None Drug Abuse: None Family History: CAD, Hypertension Patient has suicidal ideation: No Patient has homicidal ideation: No - Past Medical History Cardiac Medical History: Reports: Hx Atrial Fibrillation, Hx Hypercholesterolemia, Hx Hypertension Denies: Hx Congestive Heart Failure, Hx Coronary Artery Disease, Hx Heart Attack, Hx Peripheral Vascular Disease, Hx Heart Murmur Renal/ Medical History: Reports: Hx Benign Prostatic Hyperplasia. Denies: Hx End Stage Renal Disease, Hx Kidney Stones, Hx Peritoneal Dialysis Musculoskeletal Medical History: Reports Hx Arthritis, Denies Hx Fibromyalgia, Denies Hx Muscular Dystrophy Psychiatric Medical History: Denies: Hx Depression Traumatic Medical History: Denies: Hx Fractures Past Surgical History: Reports: Hx Orthopedic Surgery - L knee. Denies: Hx Appendectomy, Hx Bowel Surgery, Hx Cholecystectomy, Hx Coronary Artery Bypass Graft, Hx Gastric Bypass Surgery, Hx Herniorrhaphy, Hx Pacemaker, Hx Tonsillectomy - Immunizations Immunizations up to date: Yes Hx Diphtheria, Pertussis, Tetanus Vaccination: Yes Hx Pneumococcal Vaccination: 06/24/14 Review of Systems - Review of Systems -: Yes All other systems reviewed and negative Physical Exam - Vital signs Vitals: Temp Pulse Resp BP Pulse Ox 97.6 F 55 L 20 145/69 H 96 04/11/19 15:50 04/11/19 15:50 04/11/19 15:50 04/11/19 15:50 04/11/19 15:50 - Notes Notes: PHYSICAL EXAMINATION: GENERAL: Well-appearing, well-nourished and in no acute distress. A&Ox4. Answers questions appropriately. Moves comfortably w/o notable distress HEAD: Atraumatic, normocephalic. EYES: Pupils equal round and reactive to light, extraocular movements intact, sclera anicteric, conjunctiva are normal. ENT: EAC clear b/l. TM's intact b/l without erythema, fluid, or perforation. Nares patent and with clear discharge. oropharynx no erythema without exudates. No tonsilar hypertrophy without erythema or exudate. No palatine shift. Uvula midline. No tongue protrusion. No drooling, hoarseness, or airway compromise. Moist mucous membranes. No sinus tenderness. NECK: Normal range of motion, supple without lymphadenopathy. No ri gidity/meningismus. LUNGS: Breath sounds clear to auscultation bilaterally and equal. No wheezes r ales or rhonchi. No retractions HEART: Regular rate and rhythm without murmurs, rubs, gallops. ABDOMEN: Soft, nontender, nondistended abdomen. No guarding, no rebound. Normal bowel sounds present. No CVA tenderness bilaterally. NEUROLOGICAL: Normal speech, normal gait. PSYCH: Normal mood, normal affect. SKIN: Warm, Dry, normal turgor, no rashes or lesions noted. Course - Re-evaluation Re-evalutation: 04/11/19 18:27 Patient is an afebrile, well-hydrated, 79-year-old male who presents to the ED with acute URI, suspect viral. Vitals are acceptable. PE is otherwise unremarkable. CBC, CMP, and CXR unremarkable. No other labs or imaging warranted at this time based on H&P. Patient has no significant cardiopulmonary or immunocompromised medical conditions. Patient's lungs are clear to auscultation bilaterally without tachycardia, hypoxia, or tachypnea. Patient is tolerating p.o. without any difficulties. Low suspicion for any meningitis, sepsis, peritonsillar/pharyngeal abscess, respiratory compromise, severe dehydration, or other emergent systemic condition at this time. Patient is aware this condition can change from initial presentation and he needs to monitor symptoms closely. Conservative measures otherwise for symptoms. Recheck with your PCM in 2-3 days. Return to the ED with any worsening /concerning symptoms otherwise as reviewed in discharge. Patient is in agreement. - Vital Signs Vital signs: Temp Pulse Resp BP Pulse Ox 97.8 F 50 L 14 149/84 H 100 04/11/19 18:04 04/11/19 18:04 04/11/19 18:04 04/11/19 18:04 04/11/19 18:04 - Laboratory Result Diagrams: 04/11/19 16:18 04/11/19 16:18 Laboratory results interpreted by me: 04/11/19 04/11/19 16:18 16:18 RDW 14.3 H Sodium 134.6 L Glucose 116 H Discharge - Discharge Clinical Impression: Acute URI Condition: Stable Disposition: HOME, SELF-CARE Instructions: Upper Respiratory Illness ([facility]) Additional Instructions: Maintain adequate fluid intake tylenol/ibuprofen as needed alternating every 3 hours for fever/body ache over the counter cold medication as needed for symptoms Humidified air may help Wash your hands regularly Wear a mask when coughing F/u: with your PCM in 2-3 days for a recheck Return to the ED with any fever, altered mental status/behavior, chest pain, palpitations, syncope, headache, neck pain/stiffness, shortness of breath, chest pains, wheezing, drooling, trouble swallowing/breathing, abdominal pain, n/v/d, rash, or worsening/concerning symptoms otherwise. Prescriptions: Benzonatate [Tessalon Perle 100 mg Capsule] 100 mg PO Q8HP PRN #15 cap PRN Reason: Forms: Elevated Blood Pressure Referrals: CARYL MARTIN MD [ACTIVE STAFF] - Follow up as needed
== END 2019-04-11 18:44 | disposition home or self-care (01) ==
LOC: ER 15:38
DX: J06.9 Acute upper respiratory infection, unspecified (principal); R09.89 Other specified symptoms and signs involving the circulatory and respiratory systems; R09.81 Nasal congestion; R09.82 Postnasal drip; R05 Cough; I10 Essential (primary) hypertension; I48.91 Unspecified atrial fibrillation
CPT/HCPCS: 36415; 71046; 80053; 85025; 99283

== ENCOUNTER 2019-05-04 05:24 | Day surgery (SDC) | payer MEDICARE ==
[2019-04-27 09:55] LABS: HEMATOCRIT 41.6 % (37.9-51.0); HEMOGLOBIN 14.3 g/dL (13.5-17.0); MEAN CORPUSCULAR HEMOGLOBIN 31.2 pg (27.0-33.4); MEAN CORPUSCULAR HGB CONC 34.4 g/dL (32.0-36.0); MEAN CORPUSCULAR VOLUME 91 fl (80-97); PLATELET COUNT 181 10^3/uL (150-450); RED CELL DISTRIBUTION WIDTH 14.1 % (11.5-14.0)
[2019-04-27 10:24] LABS: ANION GAP 8 (5-19); BLOOD UREA NITROGEN 15 mg/dL (7-20); CALCIUM 9.5 mg/dL (8.4-10.2); CARBON DIOXIDE 30 mmol/L (22-30); CHLORIDE 97 mmol/L (98-107); GLUCOSE 98 mg/dL (75-110); POTASSIUM 3.9 mmol/L (3.6-5.0)
--- NOTE | 2019-04-27 11:06 | RADIOLOGY REPORT (SQ) ---
EXAM DESCRIPTION: CHEST PA/LATERAL COMPLETED DATE/TIME: 04/27/2019 10:51 am REASON FOR STUDY: PRE-OP COMPARISON: 04/11/2019 EXAM PARAMETERS: NUMBER OF VIEWS: two views TECHNIQUE: Digital Frontal and Lateral radiographic views of the chest acquired. RADIATION DOSE: NA LIMITATIONS: none FINDINGS: LUNGS AND PLEURA: No opacities, masses or pneumothorax. No pleural effusion. MEDIASTINUM AND HILAR STRUCTURES: No masses or contour abnormalities. HEART AND VASCULAR STRUCTURES: Heart normal size. No evidence for failure. BONES: No acute findings. HARDWARE: None in the chest. OTHER: No other significant finding. IMPRESSION: NO SIGNIFICANT RADIOGRAPHIC FINDING IN THE CHEST. TECHNICAL DOCUMENTATION: JOB ID: [id number] [employer]- All Rights Reserved Reading location - IP/workstation name: [email or web address]
--- NOTE | 2019-04-28 09:48 | EKG REPORT ---
SEVERITY:- ABNORMAL ECG - SINUS RHYTHM LEFT BUNDLE BRANCH BLOCK : Confirmed by: Ericka Yanez 28-Apr-2019 09:46:50
[~2019-05-04 05:24] MED LIST changes: +ACETAMINOPHEN 325 MG TABLET PO PRN; -BUPIVACAINE INJ/PF LIPOSOME/PF 266 MG/20 ML SDV IJ PRN; -CEFAZOLIN INJ 1 GM VIAL IV PRN; +IBUPROFEN 800 MG in NORMAL SALINE 250 ML IV PRN; -IBUPROFEN 800 MG/NS 250 ML IV PRN; -LANSOPRAZOLE 15 MG TAB.RAP.DR PO PRN; -OXYCODONE HCL SR 10 MG TABLET PO PRN; -SCOPOLAMINE HYDROBROMIDE 1.5 MG PATCH.TD72 TOP PRN; -VANCOMYCIN HCL 1,000 MG in DEXTROSE 5%-WATER 250 ML IV PRN
[2019-05-04] MEDS ORDERED: MIDAZOLAM 2 MG/2 ML INJ ONE (06:27)
[2019-05-04] MEDS ORDERED: ONDANSETRON HCL INJ/PF 4 MG/2 ML SDV ONE (06:27)
[2019-05-04] MEDS ORDERED: FENTANYL CITRATE INJ/PF 100 MCG/2 ML AMPUL ONE ×2 (06:27→12:13)
[2019-05-04] MEDS ORDERED: SUGAMMADEX SODIUM 200 MG/2 ML SDV IV ONE (06:27)
[2019-05-04] MEDS ORDERED: DEXAMETHASONE SOD PHOSPHATE INJ 4 MG/1 ML VIAL ONE (06:27)
[2019-05-04] MEDS ORDERED: PROPOFOL INJ 200 MG/20 ML VIAL IV ONE (06:28)
[2019-05-04] MEDS ORDERED: CEFAZOLIN INJ 1 GM VIAL ONE (08:11)
[2019-05-04] MEDS ORDERED: ACETAMINOPHEN 325 MG TABLET ONE (08:16)
[2019-05-04] MEDS ORDERED: CEFAZOLIN SODIUM 2 GM in DEXTROSE 5%-WATER 100 ML IV PRN (08:19)
[2019-05-04] MEDS ORDERED: ROCURONIUM BROMIDE INJ 50 MG/5 ML VIAL IV ONE (10:00)
[2019-05-04] MEDS ORDERED: SUCCINYLCHOLINE CHLORIDE INJ 200 MG/10 ML VIAL ONE (10:00)
[2019-05-04] MEDS ORDERED: GLYCOPYRROLATE 1 MG/5 ML VIAL ONE (10:00)
[2019-05-04] MEDS ORDERED: BUPIVACAINE HCL 0.25 % INJ/PF (2.5 MG/1 ML) 30 ML VIAL ONE (10:08)
[2019-05-04] MEDS ORDERED: MEPERIDINE HCL/PF INJ 25 MG/1 ML DISP.SYRIN IV PRN (10:31)
[2019-05-04] MEDS ORDERED: FENTANYL CITRATE INJ/PF 100 MCG/2 ML AMPUL IV PRN ×3 (10:31)
[2019-05-04] MEDS ORDERED: ONDANSETRON HCL INJ/PF 4 MG/2 ML SDV IV PRN (10:31)
[2019-05-04] MEDS ORDERED: MORPHINE SULFATE 10 MG/ML INJ IV PRN (10:31)
[2019-05-04] MEDS ORDERED: DIPHENHYDRAMINE HCL 50 MG/ML VIAL IV PRN (10:31)
[2019-05-04] MEDS ORDERED: PROMETHAZINE HCL INJ 25 MG/1 ML VIAL IV PRN ×2 (10:31)
[2019-05-04] MEDS ORDERED: CEFAZOLIN 2 GM/D5W RTU 2 GM/50 ML RTUPB IV PRN (11:00)
[2019-05-04] MEDS ORDERED: HYDROCODONE/ACETAMINOPHEN 10-325 MG TABLET ONE (14:15)
[2019-05-04 15:23] VITALS: BP 149/75
--- NOTE | 2019-05-06 07:48 | Discharge Summary ---
Discharge Summary (SDC) - Discharge Final Diagnosis: large right inguinoscrotal hernia Date of Surgery: 05/04/19 Discharge Date: 05/04/19 Condition: Stable Forms: ASU Anesthesia D/C Instruction, Discharge POC-Surgical Service Treatment or Instructions: DIET TOLERATED. NO LIFTING MORE THAN 10 LBS FOR 6 WEEKS. WEAR SUPPORTIVE UNDERWEAR / SOCK-STRAP. OK TO SHOWER IN 48 HOURS. NORCO 10-325 MG PO EVERY 6 HRS NEEDED FOR PAIN. F/U 7-10 DAYS. Referrals: GREGORIO FULLER PA-C [Primary Care Provider] - KIRBY RAMIREZ MD [ACTIVE STAFF] - Discharge Diet: As Tolerated Respiratory Treatments at Home: Deep Breathing/Coughing, Incentive Spirometer Discharge Activity: Balance Activity w/Rest, No Lifting Over 10 Pounds, No Lifting/Push/Pulling Home Care Assistance: None Needed Report the Following to Your Physician Immediately: Shortness of Breath, Nausea, Increase in Pain, Fever over 101 Degrees, Unusual Bleeding, Drainage-Yellow, Drainage-Griffin, Drainage-Green, Drainage-Foul Smelling, IV Site Infection Signs
--- NOTE | 2019-05-06 07:58 | Operative Report ---
Nonrecallable Operative Report DATE OF SURGERY: 05/04/19 PREOPERATIVE DIAGNOSIS: Large right inguinoscrotal hernia POSTOPERATIVE DIAGNOSIS: Large right inguinoscrotal hernia, containing cecum. OPERATION: Open right inguinal hernia repair SURGEON: KIRBY RAMIREZ 1ST ENGRAVER RUBBER: RACHANA BUENROSTRO ANESTHESIA: GA TISSUE REMOVED OR ALTERED: Hernia sac COMPLICATIONS: None apparent ESTIMATED BLOOD LOSS: 30 cc PROCEDURE: Drains/implants: Large plug and patch Bard hernia mesh. Procedure in detail: After informed consent was obtained, the patient was brought to the operating room and laid in the supine position. The area of the right groin and abdomen were prepped and draped in a normal sterile fashion. An incision was created between the ASIS and pubic tubercle. Dissection was carried through the subcutaneous tissues using sharp dissection. This was done very carefully, as the patient had a very large inguinal scrotal hernia. The hernia sac was identified within the subcutaneous tissues. The patient had completely obliterated the external oblique aponeurosis. The inguinal canal was laid open, and the hernia sac was dissected free of the cord structures. This was done with great care, so as not to injure the cord structures. There was a portion of the cecum and small intestine within the right inguinal hernia sac. This was reduced back into the abdomen. The hernia sac was then ligated at its base using 2-0 Vicryl suture, and divided. Next attention was turned to pe rforming the repair. There was a large defect, encompassing the entire floor of the inguinal canal. Again, the external oblique was completely obliterated. A large Bard plug was placed into the hernia defect. It was sutured circumferentially using 0 Prolene suture in interrupted circumferential fashion. Next, the hernia patch was placed over the inguinal canal. It was sutured to the pubic tubercle x2. Running Prolene suture was then used circumferentially to affix the mesh to the fascia. Inferiorly, it was sutured to Poupart's ligament. Superiorly it was attached to internal and external oblique fascia. The cord was brought through the keyhole. The posterior aspect of the mesh was sutured to the fascia, and tied to itself. The repair appeared to be in good order at this time. Next, the subcutaneous tissues were closed using 3-0 Vicryl suture in simple running fashion. The overlying skin was closed using 4-0 Vicryl Rapide suture in subcuticular fashion. All sponge, instrument, and needle counts were correct x2. Condition: Stable. Rachana Buenrostro PA-C was scrubbed and present the entirety of the procedure. She assisted with all portions of the procedure including opening of the groin, dissection of the large hernia sac, placement of the mesh, closure of the subcutaneous tissues, and closure of the skin.
== END 2019-05-04 15:00 | disposition home or self-care (01) ==
LOC: OROUT 05:24
PROVIDERS: ATTEND Surgery
DX: K40.90 Unilateral inguinal hernia, without obstruction or gangrene, not specified as recurrent (principal); Z79.899 Other long term (current) drug therapy
CPT/HCPCS: 93005; 36415 ×2; 84132; 85027; 80048; 71046; 93010; 00830; 49505; C1781; A9270 ×2; J2250; J0690; J3490 ×3; J1100; J3010; J0330; J2405; J7060; J7050; J2704; J1741; 830

== ENCOUNTER 2019-06-17 17:29 | Emergency (ER) | payer MEDICARE ==
--- NOTE | 2019-06-17 18:26 | ER Document Report ---
ED Medical Screen (RME) - General Chief Complaint: Groin Pain Stated Complaint: GROIN PAIN Time Seen by Provider: 06/17/19 18:18 Primary Care Provider: GREGORIO FULLER PA-C [Primary Care Provider] - Follow up as needed Notes: Patient is a 79-year-old male who presents to the emergency department with a chief complaint of right groin pain. Patient states that he had a hernia repair in the beginning of April. He states that a mesh was placed in the area. About 4 days ago he started to have pain again. States that it is worse when he is standing up. Denies any fever. Exam: Deferred due to patient not in a gown. Patient will be evaluated by another provider when he is in the room. I have greeted and performed a rapid initial assessment of this patient. A comprehensive ED assessment and evaluation of the patient, analysis of test results and completion of medical decision making process will be conducted by an additional ED providers. TRAVEL OUTSIDE OF THE [place] IN LAST 30 DAYS: No - Related Data Allergies/Adverse Reactions: No Known Allergies Allergy (Verified 06/17/19 18:18) Past Medical History - Past Medical History Cardiac Medical History: Reports: Hx Atrial Fibrillation, Hx Hypercholesterolemia, Hx Hypertension Denies: Hx Congestive Heart Failure, Hx Coronary Artery Disease, Hx Heart Attack, Hx Peripheral Vascular Disease, Hx Heart Murmur Pulmonary Medical History: Denies: Hx Asthma, Hx Bronchitis, Hx COPD, Hx Pneumonia Neurological Medical History: Denies: Hx Cerebrovascular Accident, Hx Seizures Renal/ Medical History: Reports: Hx Benign Prostatic Hyperplasia. Denies: Hx End Stage Renal Disease, Hx Kidney Stones, Hx Peritoneal Dialysis Musculoskeltal Medical History: Reports Hx Arthritis, Denies Hx Fibromyalgia, Denies Hx Muscular Dystrophy Psychiatric Medical History: Denies: Hx Depression Traumatic Medical History: Denies: Hx Fractures Past Surgical History: Reports: Hx Orthopedic Surgery - L knee. Denies: Hx Appendectomy, Hx Bowel Surgery, Hx Cholecystectomy, Hx Coronary Artery Bypass Graft, Hx Gastric Bypass Surgery, Hx Herniorrhaphy, Hx Pacemaker, Hx Tonsillectomy - Immunizations Immunizations up to date: Yes Hx Diphtheria, Pertussis, Tetanus Vaccination: Yes Physical Exam - Vital signs Vitals: Temp Pulse Resp BP Pulse Ox 98.3 F 78 20 147/77 H 97 06/17/19 17:40 06/17/19 17:40 06/17/19 17:40 06/17/19 17:40 06/17/19 17:40 Course - Vital Signs Vital signs: Temp Pulse Resp BP Pulse Ox 98.3 F 78 20 147/77 H 97 06/17/19 17:40 06/17/19 17:40 06/17/19 17:40 06/17/19 17:40 06/17/19 17:40 Doctor's Discharge - Discharge Referrals: GREGORIO FULLER PA-C [Primary Care Provider] - Follow up as needed
[2019-06-17 19:04] LABS: ABSOLUTE BASOPHILS # (AUTO) 0.1 10^3/uL (0.0-0.2); ABSOLUTE LYMPHOCYTES (AUTO) 1.2 10^3/uL (0.5-4.7); BASOPHILS % (AUTO) 0.5 % (0-2); EOSINOPHILS % (AUTO) 0.4 % (0-6); LYMPHOCYTES % (AUTO) 10.3 % (13-45); MEAN CORPUSCULAR HEMOGLOBIN 30.5 pg (27.0-33.4); MEAN CORPUSCULAR HGB CONC 34.2 g/dL (32.0-36.0); MEAN CORPUSCULAR VOLUME 89 fl (80-97); MONOCYTES % (AUTO) 8.9 % (3-13); PLATELET COUNT 291 10^3/uL (150-450); RED BLOOD COUNT 3.92 10^6/uL (4.35-5.55); RED CELL DISTRIBUTION WIDTH 12.9 % (11.5-14.0); SEGMENTED NEUTROPHILS % (AUTO) 79.9 % (42-78); TOTAL CELLS COUNTED % (AUTO) 100 %; WHITE BLOOD COUNT 11.3 10^3/uL (4.0-10.5)
[2019-06-17 19:19] LABS: ALBUMIN 3.5 g/dL (3.5-5.0); ALKALINE PHOSPHATASE 153 U/L (38-126); ANION GAP 10 (5-19); ASPARTATE AMINO TRANSFERASE 45 U/L (17-59); BILIRUBIN,DIRECT 0.2 mg/dL (0.0-0.4); BILIRUBIN,TOTAL 0.5 mg/dL (0.2-1.3); BLOOD UREA NITROGEN 16 mg/dL (7-20); CALCIUM 9.2 mg/dL (8.4-10.2); CARBON DIOXIDE 31 mmol/L (22-30); CHLORIDE 94 mmol/L (98-107); GLUCOSE 125 mg/dL (75-110); POTASSIUM 3.9 mmol/L (3.6-5.0)
--- NOTE | 2019-06-17 20:43 | ER Document Report ---
ED GI/ - General Chief Complaint: Groin Pain Stated Complaint: GROIN PAIN Time Seen by Provider: 06/17/19 18:18 Primary Care Provider: GREGORIO FULLER PA-C [Primary Care Provider] - Follow up as needed Notes: Pleasant 79-year-old male presents to the emergency department with right groin/right lower quadrant abdominal pain for the past 2 weeks that got acutely worse over the last 2 days. Patient had a mesh repair done here on May [address] Barker and was given anticipatory guidance that his recovery would take about 6 weeks. Patient is concerned because he is beyond 6 weeks and he has pain, swelling, erythema at the site. No fevers or chills, no acute shortness of breath or chest pain, no nausea or vomiting, no acute limb weakness, no other concerns other than the pain and swelling. TRAVEL OUTSIDE OF THE [place] IN LAST 30 DAYS: No - Related Data Allergies/Adverse Reactions: No Known Allergies Allergy (Verified 06/17/19 18:18) Past Medical History - Social History Smoking Status: Never Smoker Chew tobacco use (# tins/day): No Frequency of alcohol use: None Drug Abuse: None Family History: CAD, Hypertension Patient has suicidal ideation: No Patient has homicidal ideation: No - Past Medical History Cardiac Medical History: Reports: Hx Atrial Fibrillation, Hx Hyperchol esterolemia, Hx Hypertension Denies: Hx Congestive Heart Failure, Hx Coronary Artery Disease, Hx Heart Attack, Hx Peripheral Vascular Disease, Hx Heart Murmur Pulmonary Medical History: Denies: Hx Asthma, Hx Bronchitis, Hx COPD, Hx Pneumonia Neurological Medical History: Denies: Hx Cerebrovascular Accident, Hx Seizures Renal/ Medical History: Reports: Hx Benign Prostatic Hyperplasia. Denies: Hx End Stage Renal Disease, Hx Kidney Stones, Hx Peritoneal Dialysis Musculoskeletal Medical History: Reports Hx Arthritis, Denies Hx Fibromyalgia, Denies Hx Muscular Dystrophy Psychiatric Medical History: Denies: Hx Depression Traumatic Medical History: Denies: Hx Fractures Past Surgical History: Reports: Hx Orthopedic Surgery - L knee. Denies: Hx Appendectomy, Hx Bowel Surgery, Hx Cholecystectomy, Hx Coronary Artery Bypass Graft, Hx Gastric Bypass Surgery, Hx Herniorrhaphy, Hx Pacemaker, Hx Tonsillectomy - Immunizations Immunizations up to date: Yes Hx Diphtheria, Pertussis, Tetanus Vaccination: Yes Hx Pneumococcal Vaccination: 06/24/14 Review of Systems - Review of Systems Constitutional: See HPI EENT: No symptoms reported Cardiovascular: See HPI Respiratory: See HPI Gastrointestinal: See HPI Genitourinary: See HPI Male Genitourinary: No symptoms reported Musculoskeletal: No symptoms reported Skin: No symptoms reported Hematologic/Lymphatic: No symptoms reported Neurological/Psychological: No symptoms reported Physical Exam - Vital signs Vitals: Temp Pulse Resp BP Pulse Ox 98.3 F 78 20 147/77 H 97 06/17/19 17:40 06/17/19 17:40 06/17/19 17:40 06/17/19 17:40 06/17/19 17:40 - Notes Notes: PHYSICAL EXAMINATION: Reviewed vital signs and charting by RN GENERAL: Alert, interacts well. No acute distress. HEAD: Normocephalic, atraumatic. EYES: Pupils equal and round. Extraocular movements intact. ENT: Oral mucosa moist, tongue midline. NECK: Full range of motion. Trachea midline. LUNGS: Clear to auscultation bilaterally, no wheezes, rales, or rhonchi. No resp iratory distress. HEART: Regular rate and rhythm. No murmur ABDOMEN: Patient has right lower quadrant swelling and a palpable mass with some erythema, unclear if the erythema is secondary to his depends but it is warm to the touch. He does have some scrotal edema. EXTREMITIES: Moves all 4 extremities spontaneously. No edema, No cyanosis. PSYCH: Normal affect, normal mood. SKIN: Warm, dry, normal turgor. No rashes or lesions noted. Course - Re-evaluation Re-evalutation: 06/17/19 22:43 Well-appearing in no acute distress, very mild leukocytosis, afebrile, labs are all within normal limits. CT abdomen/pelvis with IV contrast was done which did show a fluid collection in the right groin. I spoke with Dr. Barker, surgeon w ho performed the procedure and he said this is most likely a seroma, expected, and there is no evidence of any infectious process so the patient should go home. I discussed this with the patient and he is in agreement with plan and I advised him that he should use a jockstrap to help support his scrotum. He is stable for discharge. - Vital Signs Vital signs: Temp Pulse Resp BP Pulse Ox 98.3 F 78 20 147/77 H 97 06/17/19 17:40 06/17/19 17:40 06/17/19 17:40 06/17/19 17:40 06/17/19 17:40 - Laboratory Result Diagrams: 06/17/19 18:45 06/17/19 18:45 Laboratory results interpreted by me: 06/17/19 06/17/19 18:45 18:45 WBC 11.3 H RBC 3.92 L Hgb 12.0 L Hct 35.0 L Lymph % (Auto) 10.3 L Absolute Neuts (auto) 9.0 H Seg Neutrophils % 79.9 H Sodium 135.1 L Chloride 94 L Carbon Dioxide 31 H Glucose 125 H Alkaline Phosphatase 153 H Discharge - Discharge Clinical Impression: Right groin pain, Inguinal swelling Condition: Good Disposition: HOME, SELF-CARE Additional Instructions: You were seen in the emergency department for right inguinal swelling. The CT showed that you had a fluid collection but it was not concerning for an abscess because after speaking with Dr. Barker it is most likely just a fluid collection which is a normal postoperative effect. Please do wear a jockstrap to help support as this is probably causing some discomfort. Please return to the emergency department if you develop fever, redness or warmth at the site, the surgical site opens up, you have pus coming from the site, or you have any other concerns at all. Please follow-up with your surgeon at your next scheduled appointment. Referrals: GREGORIO FULLER PA-C [Primary Care Provider] - Follow up as needed
--- NOTE | 2019-06-17 21:40 | RADIOLOGY REPORT (SQ) ---
EXAM DESCRIPTION: CT ABDOMEN PELVIS WITH IV CONTRAST COMPLETED DATE/TME: 06/17/2019 18:23 CLINICAL HISTORY: 79 years Male right groin pain; eval previous surgery COMPARISON: None. TECHNIQUE: Contiguous axial images obtained through the abdomen and pelvis following IV contrast. Reformatted images obtained. This exam was performed according to our department optimization program which includes automated exposure control, adjustment of the mA and/or kv according to patient size and/or use of iterative reconstruction technique. FINDINGS: The liver appears unremarkable. The spleen and pancreas appear unremarkable. No adrenal masses. 9 cm renal cyst on the left. No hydronephrosis or obstructive uropathy. The gallbladder is visualized. No aneurysmal dilatation of the aorta. No bowel obstruction. The appendix is unremarkable. There is inflammation along the right retroperitoneum which extends into the inguinal canal and proximal aspect of the scrotal sac where there is an incompletely imaged, thick-walled and enhancing fluid collection concerning for abscess. There is adjacent stranding in the groin and proximal scrotum which may reflect cellulitis. The collection measures 6.8 x 6.1 cm and extends vertically for greater than 10 cm. Bilateral hip prostheses. Diverticulosis. IMPRESSION: Inflammatory changes along the retroperitoneum extending along the gonadal vessels and into the right inguinal canal and scrotal sac with an elliptical fluid collection concerning for abscess. Postsurgical hematoma or seroma thought less likely but not excluded There is adjacent skin thickening and subcutaneous stranding which may reflect cellulitis with reactive inguinal adenopathy and external iliac adenopathy
[2019-06-17 23:06] VITALS: BP 150/78
== END 2019-06-17 23:06 | disposition home or self-care (01) ==
LOC: ER 17:29
DX: R10.31 Right lower quadrant pain (principal); R19.03 Right lower quadrant abdominal swelling, mass and lump; N50.89 Other specified disorders of the male genital organs; L53.9 Erythematous condition, unspecified; Z98.890 Other specified postprocedural states; I10 Essential (primary) hypertension; D72.829 Elevated white blood cell count, unspecified
CPT/HCPCS: 36415; 74177; 80053; 85025; 99284

== ENCOUNTER 2019-07-28 06:49 | Day surgery (SDC) | payer MEDICARE ==
[~2019-07-28 06:49] MED LIST changes: -ACETAMINOPHEN 325 MG TABLET PO PRN; +BUPIVACAINE HCL 0.75% INJ/PF (7.5 MG/1 ML) 10 ML SDV OD PRN; -IBUPROFEN 800 MG in NORMAL SALINE 250 ML IV PRN; +KETOROLAC TROMETHAMINE 0.45% 4 DROP/0.4 ML DROPERETTE OD PRN; -LACTATED RINGERS 1000 ML IV PRN; -LIDOCAINE 0.5% INJ-PF (5 MG/ML) 50 ML SDV SUBCUT PRN; +LIDOCAINE 4% INJ/PF (40 MG/ML) 5 ML AMPUL OD PRN
[2019-07-28] MEDS ORDERED: CHONDR SU A NA/HYALUR INTRAOC KIT (SURGICARE) ONE (06:52)
[2019-07-28] MEDS ORDERED: EPINEPHRINE INJ/PF 1 MG/1 ML AMPULE ONE (06:52)
[2019-07-28] MEDS ORDERED: LIDOCAINE 1% INJ-PF (10 MG/ML) 30 ML SDV ONE (06:52)
[2019-07-28] MEDS ORDERED: FENTANYL CITRATE INJ/PF 100 MCG/2 ML AMPUL ONE (06:55)
[2019-07-28] MEDS ORDERED: MIDAZOLAM 2 MG/2 ML INJ ONE (06:55)
[2019-07-28] MEDS: CYCLOPENTOLATE 0.2%/PHENYLEPHRINE 1% OPH SOLN 2 ML OD PRN ×3 (06:58→07:18)
[2019-07-28] MEDS: TROPICAMIDE 1% OPH SOLN 15 ML OD PRN ×4 (06:58→07:18)
[2019-07-28] MEDS: BESIFLOXACIN HCL 0.6% OPH SUSP 5 ML BOTTLE OD PRN ×4 (06:58→07:54)
[2019-07-28] MEDS: TETRACAINE HCL 0.5% OPH SOLN 4 ML OD PRN ×2 (06:59→07:18)
[2019-07-28] MEDS ORDERED: LIDOCAINE 1%/PHENYLEPHRINE 1.5% 1 ML VIAL ONE (07:24)
[2019-07-28] MEDS: DORZOLAMIDE HCL 2%/TIMOLOL MALEAT 0.5% OPH SOLN 10 ML OD PRN ×2 (07:54)
--- NOTE | 2019-07-28 10:38 | Operative Report ---
Operative Report-[facility] Operative Report: DATE OF SURGERY: 07/28/2019 PREOPERATIVE DIAGNOSIS: CATARACT, RIGHT EYE. POSTOPERATIVE DIAGNOSIS: CATARACT, RIGHT EYE. PROCEDURE PERFORMED: PHACOEMULSIFICATION WITH POSTERIOR CHAMBER INTRAOCULAR LENS, RIGHT EYE. Intraocular Lens Model : MX60E 14.5 Total Phaco Time: 6.62 CDE SURGEON: KAHLIL SOTO MD ANESTHESIA: TOPICAL WITH MAC. INDICATIONS FOR SURGERY: Difficulty reading words on TV. PROCEDURE: The patient was brought to the Operating Room and placed on the operative table. Following tetracaine drops, topical anesthesia was administered. This consisted of instrument wipe pledgets soaked in a solution of 4% Xylocaine mixed with 0.75% Marcaine in a 1:2 ratio. A 2 x 1 cm pledget was placed in the superior fornix. A 1 x 1 cm pledget was placed in the inferior fornix. The eye was patched shut for 5 minutes. The patch was removed. The eye was sterilely prepped and draped in the usual manner. Lid speculum was placed in the eye. The pledgets were removed. 4-0 black silk sutures were placed around the superior and the inferior rectus muscles to be used as traction. A conjunctival peritomy was made at the 10 o'clock position. Hemostasis was obtained with bipolar cautery. A posterior limbal groove was created using a crescent knife and dissected anteriorly towards the cornea. A sharp point blade was used to create a paracentesis site at the 2 o'clock position. 0.2 cc non preserved Lidocaine was injected into the anterior chamber. A 2.4 mm keratome was used to enter the anterior chamber through the groove. Viscoelastic was injected into the anterior chamber. An anterior capsulotomy was performed using Utrata forceps in a capsulorrhexis fashion. Hydrodissection and hydrodelineation were performed. Phacoemulsification was performed in [id number] technique. Following this, the I/A unit was used to remove residual cortex. Viscoelastic was injected into the capsular bag. The Intraocular lens was placed in the capsular bag. The I/A unit was used to remove residual viscoelastic. The wound was seen to be watertight under high and low pressure, and no sutures were placed. The intraocular lens was well centered. The pressure was adjusted in the eye to normal pressure. The 4-0 black silk sutures and lid speculum were removed. The eye was shielded after Besivance. prednisolone, and Cosopt drops were placed. The patient tolerated the procedure well and was sent to the Recovery Room in good condition.
== END 2019-07-28 08:38 | disposition home or self-care (01) ==
LOC: SC 06:49
PROVIDERS: ATTEND Ophthalmology
DX: H25.813 Combined forms of age-related cataract, bilateral (principal); Z79.82 Long term (current) use of aspirin; Z79.899 Other long term (current) drug therapy; H53.2 Diplopia; H47.293 Other optic atrophy, bilateral; H57.03 Miosis; H33.191 Other retinoschisis and retinal cysts, right eye; I10 Essential (primary) hypertension
CPT/HCPCS: 66984; V2632; J2250; J3490 ×4; A9270; J0171; J2370; J3010

== ENCOUNTER 2019-12-15 10:28 | Day surgery (SDC) | payer MEDICARE ==
[~2019-12-15 10:28] MED LIST changes: -BUPIVACAINE HCL 0.75% INJ/PF (7.5 MG/1 ML) 10 ML SDV OD PRN; +BUPIVACAINE HCL 0.75% INJ/PF (7.5 MG/1 ML) 10 ML SDV OS PRN; +CHONDR SU A NA/HYALUR INTRAOC KIT (SURGICARE) ONE; +DORZOLAMIDE HCL 2%/TIMOLOL MALEAT 0.5% OPH SOLN 10 ML OS PRN; +EPINEPHRINE INJ/PF 1 MG/1 ML AMPULE ONE; -KETOROLAC TROMETHAMINE 0.45% 4 DROP/0.4 ML DROPERETTE OD PRN; +KETOROLAC TROMETHAMINE 0.45% 4 DROP/0.4 ML DROPERETTE OS PRN; +LIDOCAINE 1%/PHENYLEPHRINE 1.5% 1 ML VIAL ONE; -LIDOCAINE 4% INJ/PF (40 MG/ML) 5 ML AMPUL OD PRN; +LIDOCAINE 4% INJ/PF (40 MG/ML) 5 ML AMPUL OS PRN; +MIDAZOLAM 2 MG/2 ML INJ ONE
[2019-12-15] MEDS: CYCLOPENTOLATE 0.2%/PHENYLEPHRINE 1% OPH SOLN 2 ML OS PRN ×3 (10:55→11:20)
[2019-12-15] MEDS: TETRACAINE HCL 0.5% OPH SOLN 4 ML OS PRN ×3 (10:55→11:31)
[2019-12-15] MEDS: BESIFLOXACIN HCL 0.6% OPH SUSP 5 ML BOTTLE OS PRN ×3 (10:55→12:06)
[2019-12-15] MEDS: TROPICAMIDE 1% OPH SOLN 15 ML OS PRN ×3 (10:55→11:20)
--- NOTE | 2019-12-15 13:15 | Operative Report ---
Operative Report-[facility] Operative Report: DATE OF SURGERY: 12/15/2019 PREOPERATIVE DIAGNOSIS: CATARACT, LEFT EYE. POSTOPERATIVE DIAGNOSIS: CATARACT, LEFT EYE. PROCEDURE PERFORMED: PHACOEMULSIFICATION WITH POSTERIOR CHAMBER INTRAOCULAR LENS, LEFT EYE. Intraocular Lens Model : MX60E 15.5 Total Phaco Time: 6.59 CDE SURGEON: KAHLIL SOTO MD ANESTHESIA: TOPICAL WITH MAC. INDICATIONS FOR SURGERY: Difficultly driving at night PROCEDURE: The patient was brought to the Operating Room and placed on the operative table. Following tetracaine drops, topical anesthesia was administered. This consisted of instrument wipe pledgets soaked in a solution of 4% Xylocaine mixed with 0.75% Marcaine in a 1:2 ratio. A 2 x 1 cm pledget was placed in the superior fornix. A 1 x 1 cm pledget was placed in the inferior fornix. The eye was patched shut for 5 minutes. The patch was removed. The eye was sterilely prepped and draped in the usual manner. Lid speculum was placed in the eye. The pledgets were removed. 4-0 black silk sutures were placed around the superior and the inferior rectus muscles to be used as traction. A conjunctival peritomy was made at the 10 o'clock position. Hemostasis was obtained with bipolar cautery. A posterior limbal groove was created using a crescent knife and dissected anteriorly towards the cornea. A sharp point blade was used to create a paracentesis site at the 2 o'clock position. 0.2 cc non preserved Lidocaine with phenylehrine was injected into the anterior chamber. A 2.4 mm keratome was used to enter the anterior chamber through the groove. Viscoelastic was injected into the anterior chamber. An anterior capsulotomy was performed using Utrata forceps in a capsulorrhexis fashion. Hydrodissection and hydrodelineation were performed. Phacoemulsification was performed in [id number] technique. Following this, the I/A unit was used to remove residual cortex. Viscoelastic was injected into the capsular bag. The Intraocular lens was placed in the capsular bag. The I/A unit was used to remove residual viscoelastic. The wound was seen to be watertight under high and low pressure, and no sutures were placed. The intraocular lens was well centered. The pressure was adjusted in the eye to normal pressure. The 4-0 black silk sutures and lid speculum were removed. The eye was shielded after Besivance,prednisolone, and Cosopt drops were placed. The patient tolerated the procedure well and was sent to the Recovery Room in good condition.
== END 2019-12-15 12:53 | disposition home or self-care (01) ==
LOC: SC 10:28
PROVIDERS: ATTEND Ophthalmology
DX: H25.812 Combined forms of age-related cataract, left eye (principal); H57.03 Miosis; Z96.1 Presence of intraocular lens; I10 Essential (primary) hypertension; Z79.899 Other long term (current) drug therapy
CPT/HCPCS: 66984; V2632; J2250; J3490 ×4; A9270; J0171; 142

== ENCOUNTER 2020-03-03 18:46 | Emergency (ER) | payer MEDICARE ==
[2020-03-03 19:04] LABS: ABSOLUTE BASOPHILS # (AUTO) 0.1 10^3/uL (0.0-0.2); ABSOLUTE EOSINOPHILS # (AUTO) 0.1 10^3/uL (0.0-0.6); ABSOLUTE LYMPHOCYTES (AUTO) 0.7 10^3/uL (0.5-4.7); ABSOLUTE MONOCYTES (AUTO) 0.7 10^3/uL (0.1-1.4); ABSOLUTE NEUT (AUTO) 7.5 10^3/uL (1.7-8.2); BASOPHILS % (AUTO) 0.6 % (0-2); EOSINOPHILS % (AUTO) 0.8 % (0-6); HEMATOCRIT 37.3 % (37.9-51.0); HEMOGLOBIN 13.3 g/dL (13.5-17.0); LYMPHOCYTES % (AUTO) 7.8 % (13-45); MEAN CORPUSCULAR HEMOGLOBIN 31.8 pg (27.0-33.4); MEAN CORPUSCULAR HGB CONC 35.8 g/dL (32.0-36.0); MEAN CORPUSCULAR VOLUME 89 fl (80-97); PLATELET COUNT 153 10^3/uL (150-450); RED CELL DISTRIBUTION WIDTH 13.5 % (11.5-14.0); SEGMENTED NEUTROPHILS % (AUTO) 82.8 % (42-78); TOTAL CELLS COUNTED % (AUTO) 100 %; WHITE BLOOD COUNT 9.1 10^3/uL (4.0-10.5)
[2020-03-03 19:29] LABS: ALBUMIN 3.7 g/dL (3.5-5.0); ALKALINE PHOSPHATASE 117 U/L (38-126); ANION GAP 7 (5-19); ASPARTATE AMINO TRANSFERASE 32 U/L (17-59); BILIRUBIN,DIRECT 0.3 mg/dL (0.0-0.4); BILIRUBIN,TOTAL 0.7 mg/dL (0.2-1.3); BLOOD UREA NITROGEN 17 mg/dL (7-20); CARBON DIOXIDE 26 mmol/L (22-30); CHLORIDE 98 mmol/L (98-107); CREATINE KINASE 60 U/L (55-170); GLUCOSE 120 mg/dL (75-110); TOTAL PROTEIN 6.7 g/dL (6.3-8.2)
--- NOTE | 2020-03-03 23:16 | ER Document Report ---
ED Fever - General Chief Complaint: Fever Stated Complaint: AMS/FEVER Time Seen by Provider: 03/03/20 22:54 Primary Care Provider: GREGORIO FULLER PA-C [Primary Care Provider] - Follow up tomorrow (Call today for outpatient follow-up appointment.) Mode of Arrival: Medic Information source: Patient, Relative Notes: 79-year-old male presented to the emergency room via EMS after family called 911 after finding patient outside diaphoretic, febrile, and confused. On scene per EMS patient had a temperature of 102.2. Was given acetaminophen and IV fluids prior to arrival. Per EMS daughter states that patient appeared confused had not had a fever prior to today that she is aware of. There was no concerns for chest pain, shortness of breath, no difficulty breathing. Patient did not fall or injure himself. Per EMS he was found outside standing by the car by his family. Daughter did inform EMS that they have been followed by the primary care physician for some new onset of altered mental status. TRAVEL OUTSIDE OF THE [place] IN LAST 30 DAYS: No - Related Data Allergies/Adverse Reactions: No Known Allergies Allergy (Verified 03/03/20 18:55) Home Medications: Tamsulosin, furosemide, ibuprofen, carvidelol,valsartan Past Medical History - General Information source: Patient, Relative - Social History Smoking Status: Former Smoker Frequency of alcohol use: None Drug Abuse: None Family History: CAD, Hypertension Patient has homicidal ideation: No - Past Medical History Cardiac Medical History: Reports: Hx Atrial Fibrillation, Hx Hypercholesterolemia, Hx Hypertension Denies: Hx Congestive Heart Failure, Hx Coronary Artery Disease, Hx Heart Attack, Hx Peripheral Vascular Disease, Hx Heart Murmur Pulmonary Medical History: Denies: Hx Asthma, Hx Bronchitis, Hx COPD, Hx Pneumonia Neurological Medical History: Denies: Hx Cerebrovascular Accident, Hx Seizures Renal/ Medical History: Reports: Hx Benign Prostatic Hyperplasia. Denies: Hx End Stage Renal Disease, Hx Kidney Stones, Hx Peritoneal Dialysis GI Medical History: Denies: Hx Hepatitis, Hx Hiatal Hernia, Hx Ulcer Musculoskeletal Medical History: Reports Hx Arthritis, Denies Hx Fibromyalgia, Denies Hx Muscular Dystrophy Psychiatric Medical History: Denies: Hx Depression Traumatic Medical History: Denies: Hx Fractures Infectious Medical History: Denies: Hx Hepatitis Past Surgical History: Reports: Hx Orthopedic Surgery - L knee. Denies: Hx Appendectomy, Hx Bowel Surgery, Hx Cholecystectomy, Hx Coronary Artery Bypass Gr aft, Hx Gastric Bypass Surgery, Hx Herniorrhaphy, Hx Open Heart Surgery, Hx Pacemaker, Hx Tonsillectomy - Immunizations Immunizations up to date: Yes Hx Diphtheria, Pertussis, Tetanus Vaccination: Yes Hx Pneumococcal Vaccination: 06/24/14 Review of Systems - Review of Systems Constitutional: Fever, Weakness EENT: No symptoms reported Cardiovascular: No symptoms reported Respiratory: No symptoms reported Gastrointestinal: No symptoms reported Genitourinary: No symptoms reported Musculoskeletal: No symptoms reported Skin: No symptoms reported Neurological/Psychological: Confusion -: Yes All other systems reviewed and negative Physical Exam - Vital signs Vitals: Temp Pulse Resp BP Pulse Ox 99.8 F 87 19 127/86 H 95 03/03/20 18:55 03/03/20 18:55 03/03/20 18:55 03/03/20 18:55 03/03/20 18:55 - General General appearance: Appears well, Alert In distress: None - HEENT Head: Normocephalic, Atraumatic Eyes: Normal Pupils: PERRL - Respiratory Respiratory status: No respiratory distress Chest status: Nontender Breath sounds: Normal Chest palpation: Normal - Cardiovascular Rhythm: Regular Heart sounds: Normal auscultation Murmur: No - Abdominal Inspection: Normal Distension: No distension Bowel sounds: Normal Tenderness: Nontender Organomegaly: No organomegaly - Neurological Neuro grossly intact: Yes Cognition: Normal Orientation: AAOx4 [place] Coma Scale Eye Opening: Spontaneous [place] Coma Scale Verbal: Oriented [place] Coma Scale Motor: Obeys Commands [place] Coma Scale Total: 15 Speech: Normal Motor strength normal: LUE, RUE, LLE, RLE Sensory: Normal Course - Re-evaluation Re-evalutation: 03/04/20 00:14 Patient is alert and oriented x3. He has no acute distress at this time. Pat ient offers no complaints. Denies chest pain, shortness of breath, no difficulty breathing. States he does not recall the recent periods of confusion that were relayed by EMS per the daughter. Of confusion earlier today. Did speak with patient's daughter Ramila who stated patient has seemed more confused over the past several weeks. Also states patient has had some episodes of urinary incontinence. They have been to see his primary care physician most recently on Saturday states they did blood work that was normal. They are unsure how to continue to care for him. There is been no concerns for chest pain, shortness of breath, no difficulty breathing. No recent falls. Not on blood th inners. Discussed with daughter that he still has test results pending but we will inform her once on the remaining of his test results have resulted. 03/04/20 03:50 Patient is resting comfortably he is ambulatory with a steady gait. Did review all test results with patient. Also called and spoke with daughter Ramila all test results were discussed at length with family. Patient did have a low sodium of 130 which is not likely causing his altered mental status or urinary incontinence. I did discuss with the family the need to follow-up with primary care physician for possible assisted care living facility placement if they are having difficulty caring for him at home at this time. They are recommended that they call your primary care physician today for further management. They were given strict return to the emergency room guidelines. Patient was given strict return to the emergency room guidelines. Return for any new or worsening symptoms. All questions were answered. Patient verbalized understanding and agrees with plan of care. - Vital Signs Vital signs: Temp Pulse Resp BP Pulse Ox 97.8 F 72 18 141/80 H 98 03/04/20 04:00 03/04/20 04:00 03/04/20 04:00 03/04/20 04:00 03/04/20 04:00 - Laboratory Result Diagrams: 03/03/20 18:51 03/03/20 18:51 Laboratory results interpreted by me: 03/03/20 03/03/20 18:51 18:51 RBC 4.20 L Hgb 13.3 L Hct 37.3 L Lymph % (Auto) 7.8 L Seg Neutrophils % 82.8 H Sodium 130.8 L Glucose 120 H - EKG Interpretation by Ma EKG shows normal: Sinus rhythm Additional EKG results interpreted by me: 03/04/20 00:12 EKG was interpreted by ED physician Dr. Rutledge, No acute STEMI Normal sinus rhythm Previous left bundle branch block confirmed. Rate is [address] wave abnormalities. Discharge - Discharge Clinical Impression: Hyponatremia Altered mental status Qualifiers: Altered mental status type: unspecified Qualified Code(s): R41.82 - Altered men elysia status, unspecified Fever Qualifiers: Fever type: unspecified Qualified Code(s): R50.9 - Fever, unspecified Urinary incontinence Qualifiers: Urinary Incontinence type: unspecified incontinence Qualified Code(s): R32 - Unspecified urinary incontinence Condition: Stable Disposition: HOME, SELF-CARE Instructions: Altered Mental Status ([facility]), Fever ([facility]), Hyponatremia ([facility]), Urinary Incontinence ([facility]) Referrals: GREGORIO FULLER PA-C [Primary Care Provider] - Follow up tomorrow (Call today for outpatient follow-up appointment.)
[2020-03-03] MEDS ORDERED: RINGERS SOLUTION,LACTATED 1,000 ML IV ONE (23:18)
[2020-03-04 00:51] LABS: APPEARANCE,URINE SLIGHTLY-CLOUDY; BILIRUBIN,URINE NEGATIVE (NEGATIVE); COLOR,URINE YELLOW; GLUCOSE, URINE NEGATIVE (NEGATIVE); KETONES,URINE NEGATIVE (NEGATIVE); LEUKOCYTE ESTERASE,URINE NEGATIVE (NEGATIVE); NITRITE,URINE NEGATIVE (NEGATIVE); PROTEIN,URINE NEGATIVE (NEGATIVE); URINE SPECIFIC GRAVITY 1.023; UROBILINOGEN,URINE NEGATIVE mg/dL (<2.0)
--- NOTE | 2020-03-04 01:07 | RADIOLOGY REPORT (SQ) ---
EXAM DESCRIPTION: CT HEAD WITHOUT IV CONTRAST COMPLETED DATE/TME: 03/03/2020 23:14 CLINICAL INDICATION: 79-year-old male with altered mental status. COMPARISON: 07/18/2015. TECHNIQUE: CT brain without contrast. This exam was performed according to our departmental dose optimization program which includes use of automated exposure control, adjustment of the mA and/or kV according to patient size and/or use of iterative reconstruction technique. FINDINGS: Multifocal regions of patchy hypoattenuation are present in a subcortical and periventricular deep white matter distribution, nonspecific; however, most likely represent small vessel ischemic disease, age indeterminate. Small volume LEFT frontal encephalomalacia and gliosis may reflect sequela of postoperative change. The ventricles, and sulci are enlarged compatible with underlying volume loss. Normal pressure hydrocephalus may be considered in the differential. The lindsey-white matter differentiation is preserved. There is no mass effect, midline shift, intra- or extra-axial fluid collection/acute hemorrhage. The osseous structures reveal postoperative changes of the frontal midline craniectomy stable in comparison to the previous examination. The paranasal sinuses and mastoid air cells are clear. IMPRESSION: 1. No acute intracranial abnormalities. Nonspecific white matter change most likely small vessel ischemic disease, age indeterminate. 2. CT is insensitive for early evaluation of acute stroke. If there is clinical concern for acute ischemia, an MRI may be considered. 3. Stable ventriculomegaly.
--- NOTE | 2020-03-04 01:15 | RADIOLOGY REPORT (SQ) ---
CLINICAL INDICATION: fever. TECHNIQUE: A single portable AP view was obtained of the chest at 0033 hours. COMPARISON: April 27, 2019. FINDINGS: The cardiomediastinal silhouette is enlarged but stable. The lungs are grossly clear. No evidence of effusion or pneumothorax. The visualized bones are unremarkable. Chronic purple change IMPRESSION: No evidence of active intrathoracic disease.
[2020-03-04 04:17] VITALS: BP 141/80
--- NOTE | 2020-03-04 16:59 | EKG REPORT ---
SEVERITY:- ABNORMAL ECG - SINUS RHYTHM FIRST DEGREE AV BLOCK LEFT BUNDLE BRANCH BLOCK : Confirmed by: Maico Jenkins MD 04-Mar-2020 16:58:36
== END 2020-03-04 04:31 | disposition home or self-care (01) ==
LOC: ER 18:46
DX: E87.1 Hypo-osmolality and hyponatremia (principal); R41.0 Disorientation, unspecified; R50.9 Fever, unspecified; R32 Unspecified urinary incontinence; R61 Generalized hyperhidrosis; Z79.899 Other long term (current) drug therapy; Z87.891 Personal history of nicotine dependence; I10 Essential (primary) hypertension
CPT/HCPCS: 93005; 99285; 96360; 96361; 36415; 82553; 82550; 83605; 85025; 80053; 81001; 84484; 71045; 70450; 93010; J7120

== ENCOUNTER 2020-03-23 18:14 | Emergency (ER) | payer MEDICARE ==
--- NOTE | 2020-03-23 18:41 | ER Document Report ---
ED Medical Screen (RME) - General Chief Complaint: Leg Swelling Stated Complaint: LEG SWELLING Time Seen by Provider: 03/23/20 18:35 Primary Care Provider: GREGORIO FULLER PA-C [Primary Care Provider] - Follow up as needed Mode of Arrival: Ambulatory Information source: Patient, Relative Notes: HPI; 79-year-old male presents to the emergency room stating that his family feels like his legs are more swollen and more erythematous than normal. Patient does not feel that they are more swollen or erythematous than normal. States he was seen at [facility] and was referred to the emergency room for further evaluation and treatment. Denies any fevers. No chest pain, no shortness of breath, no difficulty breathing. PE: Alert and oriented x3. No acute distress noted. Patient without any complaints. Lungs: Clear to auscultation without rales, rhonchi, wheezes. Heart: Regular rate rhythm without murmurs, rubs, gallops. I have greeted and performed a rapid initial assessment of this patient. A comprehensive ED assessment and evaluation of the patient, analysis of test results and completion of the medical decision making process will be conducted by additional ED providers. I have specifically instructed the patient or family members with the patient to immediately return to any nursing staff should anything change in the patient's condition or with their chief complaint. TRAVEL OUTSIDE OF THE [place] IN LAST 30 DAYS: No - Related Data Allergies/Adverse Reactions: No Known Allergies Allergy (Verified 03/23/20 18:35) Past Medical History - Past Medical History Cardiac Medical History: Reports: Hx Atrial Fibrillation, Hx Hypercholesterolemia, Hx Hypertension Denies: Hx Congestive Heart Failure, Hx Coronary Artery Disease, Hx Heart Attack, Hx Peripheral Vascular Disease, Hx Heart Murmur Pulmonary Medical History: Denies: Hx Asthma, Hx Bronchitis, Hx COPD, Hx Pneumonia Neurological Medical History: Denies: Hx Cerebrovascular Accident, Hx Seizures Renal/ Medical History: Reports: Hx Benign Prostatic Hyperplasia. Denies: Hx End Stage Renal Disease, Hx Kidney Stones, Hx Peritoneal Dialysis GI Medical History: Denies: Hx Hepatitis, Hx Hiatal Hernia, Hx Ulcer Musculoskeltal Medical History: Reports Hx Arthritis, Denies Hx Fibromyalgia, Denies Hx Muscular Dystrophy Psychiatric Medical History: Denies: Hx Depression Traumatic Medical History: Denies: Hx Fractures Infectious Medical History: Denies: Hx Hepatitis Past Surgical History: Reports: Hx Orthopedic Surgery - L knee. Denies: Hx Appendectomy, Hx Bowel Surgery, Hx Cholecystectomy, Hx Coronary Artery Bypass Graft, Hx Gastric Bypass Surgery, Hx Herniorrhaphy, Hx Open Heart Surgery, Hx Pacemaker, Hx Tonsillectomy - Immunizations Immunizations up to date: Yes Hx Diphtheria, Pertussis, Tetanus Vaccination: Yes Physical Exam - Vital signs Vitals: Temp Pulse Resp BP Pulse Ox 97.8 F 62 18 162/91 H 100 03/23/20 18:18 03/23/20 18:18 03/23/20 18:18 03/23/20 18:18 03/23/20 18:18 Course - Vital Signs Vital signs: Temp Pulse Resp BP Pulse Ox 97.8 F 62 18 162/91 H 100 03/23/20 18:18 03/23/20 18:18 03/23/20 18:18 03/23/20 18:18 03/23/20 18:18 Doctor's Discharge - Discharge Referrals: GREGORIO FULLER PA-C [Primary Care Provider] - Follow up as needed
[2020-03-23 19:09] LABS: ABSOLUTE BASOPHILS # (AUTO) 0.1 10^3/uL (0.0-0.2); ABSOLUTE EOSINOPHILS # (AUTO) 0.3 10^3/uL (0.0-0.6); ABSOLUTE LYMPHOCYTES (AUTO) 1.7 10^3/uL (0.5-4.7); ABSOLUTE MONOCYTES (AUTO) 0.7 10^3/uL (0.1-1.4); ABSOLUTE NEUT (AUTO) 5.9 10^3/uL (1.7-8.2); BASOPHILS % (AUTO) 1.2 % (0-2); EOSINOPHILS % (AUTO) 3.3 % (0-6); HEMATOCRIT 38.4 % (37.9-51.0); HEMOGLOBIN 13.5 g/dL (13.5-17.0); LYMPHOCYTES % (AUTO) 19.8 % (13-45); MEAN CORPUSCULAR HEMOGLOBIN 31.8 pg (27.0-33.4); MEAN CORPUSCULAR HGB CONC 35.2 g/dL (32.0-36.0); MEAN CORPUSCULAR VOLUME 90 fl (80-97); MONOCYTES % (AUTO) 7.6 % (3-13); PLATELET COUNT 221 10^3/uL (150-450); RED BLOOD COUNT 4.25 10^6/uL (4.35-5.55); RED CELL DISTRIBUTION WIDTH 13.9 % (11.5-14.0); SEGMENTED NEUTROPHILS % (AUTO) 68.1 % (42-78); TOTAL CELLS COUNTED % (AUTO) 100 %; WHITE BLOOD COUNT 8.6 10^3/uL (4.0-10.5)
--- NOTE | 2020-03-23 19:14 | RADIOLOGY REPORT (SQ) ---
EXAM DESCRIPTION: CHEST 2 VIEWS IMAGES COMPLETED DATE/TIME: 03/23/2020 7:05 pm REASON FOR STUDY: edema COMPARISON: 03/04/2020 EXAM PARAMETERS: NUMBER OF VIEWS: two views TECHNIQUE: Digital Frontal and Lateral radiographic views of the chest acquired. RADIATION DOSE: NA LIMITATIONS: none FINDINGS: LUNGS AND PLEURA: No opacities, masses or pneumothorax. No pleural effusion. MEDIASTINUM AND HILAR STRUCTURES: No masses or contour abnormalities. HEART AND VASCULAR STRUCTURES: Heart normal size. No evidence for failure. BONES: No acute findings. HARDWARE: None in the chest. OTHER: No other significant finding. IMPRESSION: NO ACUTE RADIOGRAPHIC FINDING IN THE CHEST. TECHNICAL DOCUMENTATION: JOB ID: [id number] 2010 [employer]- All Rights Reserved Reading location - IP/workstation name: [email or web address]
[2020-03-23 19:27] LABS: ALBUMIN 4.2 g/dL (3.5-5.0); ALKALINE PHOSPHATASE 126 U/L (38-126); ANION GAP 7 (5-19); ASPARTATE AMINO TRANSFERASE 44 U/L (17-59); BILIRUBIN,DIRECT 0.2 mg/dL (0.0-0.4); BILIRUBIN,TOTAL 0.9 mg/dL (0.2-1.3); BLOOD UREA NITROGEN 19 mg/dL (7-20); CALCIUM 9.7 mg/dL (8.4-10.2); CARBON DIOXIDE 29 mmol/L (22-30); CHLORIDE 96 mmol/L (98-107); GLUCOSE 106 mg/dL (75-110); POTASSIUM 4.7 mmol/L (3.6-5.0); TOTAL PROTEIN 7.2 g/dL (6.3-8.2)
--- NOTE | 2020-03-23 20:49 | ER Document Report ---
Entered by AMANDA ADAMS SCRIBE 03/23/202034 Acting as scribe for:GABBY DONOVAN, DO ED General - General Chief Complaint: Leg Swelling Stated Complaint: LEG SWELLING Time Seen by Provider: 03/23/20 18:35 Primary Care Provider: GREGORIO FULLER PA-C [Primary Care Provider] - Follow up as needed Mode of Arrival: Ambulatory Information source: Patient, Relative Notes: This 79 year old male patient presents to the emergency department today with complaints of edema of his bilateral lower extremities. Patient states his daughter was concerned there was swelling in his legs and patient states he does not think it is different than usual. 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 Denies any chest pain, shortness of breath, cough, fever, nasal congestion, or abdominal pain. TRAVEL OUTSIDE OF THE [place] IN LAST 30 DAYS: No - Related Data Allergies/Adverse Reactions: No Known Allergies Allergy (Verified 03/23/20 18:35) Home Medications: valsartan. multivitamin Past Medical History - General Information source: Patient, Relative - Social History Smoking Status: Former Smoker Chew tobacco use (# tins/day): No Frequency of alcohol use: Rare Drug Abuse: None Occupation: Retired Lives with: Family Family History: CAD, Hypertension Patient has homicidal ideation: No - Past Medical History Cardiac Medical History: Reports: Hx Atrial Fibrillation, Hx Hypercholesterolemia, Hx Hypertension Renal/ Medical History: Reports: Hx Benign Prostatic Hyperplasia GI Medical History: Reports: Hx Colonoscopy Musculoskeletal Medical History: Reports Hx Arthritis Past Surgical History: Reports: Hx Orthopedic Surgery - L knee, R hip - Immunizations Immunizations up to date: Yes Hx Diphtheria, Pertussis, Tetanus Vaccination: Yes Hx Pneumococcal Vaccination: 06/24/14 Review of Systems - Review of Systems Constitutional: See HPI. denies: Fever EENT: See HPI. denies: Nose congestion Cardiovascular: See HPI. denies: Chest pain Respiratory: See HPI. denies: Cough, Short of breath Gastrointestinal: See HPI. denies: Abdominal pain Genitourinary: No symptoms reported Male Genitourinary: No symptoms reported Musculoskeletal: See HPI, Leg swelling - bilateral Skin: No symptoms reported Hematologic/Lymphatic: No symptoms reported Neurological/Psychological: No symptoms reported -: Yes All other systems reviewed and negative Physical Exam - Vital signs Vitals: Temp Pulse Resp BP Pulse Ox 97.8 F 62 18 162/91 H 100 03/23/20 18:18 03/23/20 18:18 03/23/20 18:18 03/23/20 18:18 03/23/20 18:18 - General General appearance: Appears well, Alert - HEENT Head: Normocephalic, Atraumatic Eyes: Normal Pupils: PERRL - Respiratory Respiratory status: No respiratory distress Chest status: Nontender Breath sounds: Normal Chest palpation: Normal - Cardiovascular Rhythm: Regular Heart sounds: Normal auscultation Murmur: No - Abdominal Inspection: Normal - Soft Distension: No distension Bowel sounds: Normal Tenderness: Nontender - Extremities General upper extremity: Normal inspection, Normal ROM. No: Edema General lower extremity: Normal ROM Notes: Mild edema and chronic venous stasis changes to bilateral lower extremities. - Neurological Neuro grossly intact: Yes Cognition: Normal Orientation: AAOx4 [place] Coma Scale Eye Opening: Spontaneous [place] Coma Scale Verbal: Oriented [place] Coma Scale Motor: Obeys Commands [place] Coma Scale Total: 15 Speech: Normal - Psychological Associated symptoms: Normal affect, Normal mood - Skin Skin Temperature: Warm Skin Moisture: Dry Skin Color: Normal Course - Vital Signs Vital signs: Temp Pulse Resp BP Pulse Ox 97.2 F 56 L 14 148/82 H 100 03/23/20 21:18 03/23/20 21:18 03/23/20 21:18 03/23/20 21:18 03/23/20 21:18 - Laboratory Result Diagrams: 03/23/20 18:55 03/23/20 18:55 Laboratory results interpreted by me: 03/23/20 03/23/20 18:55 18:55 RBC 4.25 L Sodium 132.1 L Chloride 96 L Discharge - Discharge Clinical Impression: Peripheral edema Condition: Stable Disposition: HOME, SELF-CARE Instructions: Dependent Edema ([facility]), Edema, Peripheral ([facility]) Additional Instructions: See your doctor in follow up. Take your medicine as directed. Please return here for chest pain, shortness of breath or other problems or concerns. Referrals: GREGORIO FULLER PA-C [Primary Care Provider] - Follow up as needed I personally performed the services described in the documentation, reviewed and edited the documentation which was dictated to the scribe in my presence, and it accurately records my words and actions.
[2020-03-23 21:19] VITALS: BP 148/82
== END 2020-03-23 21:19 | disposition home or self-care (01) ==
LOC: ER 18:14
DX: R60.9 Edema, unspecified (principal); I48.91 Unspecified atrial fibrillation; E78.00 Pure hypercholesterolemia, unspecified; I10 Essential (primary) hypertension
CPT/HCPCS: 36415; 71046; 80053; 83880; 85025; 99284